=== PATIENT | female | born 1940 | race Caucasian/White ===

== ENCOUNTER 2017-09-05 12:47 | Inpatient (IN) | payer MEDICARE, OTHER ==
[2017-09-05] MEDS ORDERED: Albuterol/Ipratropium 3.0-0.5 MG/3 ML Neb Soln NEB ONE (13:17)
--- NOTE | 2017-09-05 13:17 | EDM.PDOC ---
ED HPI GENERAL MEDICAL PROBLEM - General Chief Complaint: Respiratory Problem Stated Complaint: [facility] Time Seen by Provider: 09/05/17 13:12 Source of Information: Reports: Patient History Limitations: Reports: No Limitations - History of Present Illness INITIAL COMMENTS - FREE TEXT/NARRATIVE: 76-year-old female brought to the ED per [facility] when she summoned them due to increasing shortness of breath. 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 She reports she did get a little sleep last night. This morning however her breathing has become much more difficult and O2 sats are registering in the 50 percentile. She came to the ED on a nonrebreather mask at 15 L/m. This was discontinued upon arrival and she is likely hypercapnic. She'll be placed on a Venturi mask at 50% at this time. Initial O2 sats were anywhere between 47 and 53%. I did question her whether or not she wished to be intubated and she would rather not. We will therefore try conservative measures with injury which is not likely to be successful with O2 sats this level and then I will progress to BiPAP. She denies any fever chills or extra cough. She always has some sputum to bring up which is usually take and perhaps slightly yellow at times. No recent hemoptysis. Onset: Today Onset Date: 09/05/17 (Has severe terminal end-stage COPD on 6 L of oxygen all times but sudden exacerbation of hypoxia and breathing difficulties this morning.) Duration: Hour(s): Location: Reports: Chest (Difficulty breathing.) Quality: Reports: Other Severity: Severe (Difficulty getting any air air.) Improves with: Reports: None Worsens with: Reports: Movement Context: Reports: Other (Has terminal COPD and is on 6 L of oxygen by nasal cannula at all times.). Denies: Activity, Exercise, Lifting, Sick Contact, Trauma Associated Symptoms: Reports: Cough (Chronic cough usually of thick white sputum.), Loss of Appetite, Malaise, Shortness of Breath (Chronically), Weakness (Walk today because of hypoxia.). 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 (see below) (None.) - Related Data Allergies Allergy/AdvReac Type Severity Reaction Status Date / Time lisinopril Allergy Hives Verified 06/01/16 12:08 Home Meds: Home Meds Letrozole [Letrozole] 2.5 mg PO DAILY 03/25/14 [History] Methimazole [Methimazole] 5 mg PO ASDIRECTED 03/25/14 [History] Metoprolol Tartrate [Lopressor] 50 mg PO BID 03/25/14 [History] Rosuvastatin Calcium [Crestor] 5 mg PO ASDIRECTED 03/25/14 [History] metFORMIN [Glucophage] 500 mg PO BID 03/25/14 [History] Aspirin 81 mg PO DAILY 06/27/14 [History] Calcium Carb & Citrate/Vit D3 [Calcium + D3 ER Tablet] 1 tab PO BID 06/27/14 [ History] Lutein/Minerals/Vit A,C & E [Ocuvite] 1 tab PO DAILY 06/27/14 [History] Ergocalciferol (Vitamin D2) [Vitamin D] 400 unit PO BID 06/01/16 [History] Furosemide [Lasix] 20 mg PO BIDDIURETIC 06/01/16 [History] Hyoscyamine [Hyomax-SL] 0.125 mg SL Q4H PRN 06/01/16 [History] Ibuprofen 400 mg PO QID PRN 06/01/16 [History] Albuterol/Ipratropium [Take Home: Albuterol/Ipratropium 4 GM Inhaler] 3 packet INH ASDIRECTED PRN #3 inhaler 06/04/16 [Rx] Fluticasone/Salmeterol [Advair Diskus 250-50] 1 puff INH BID #3 inhaler [Rx] methylPREDNISolone [Medrol] 4 mg PO ASDIRECTED #1 tab.ds.pk 06/04/16 [Rx] Past Medical History HEENT History: Reports: Cataract, Macular Degeneration Cardiovascular History: Reports: CAD, Heart Failure, SOB on Exertion Respiratory History: Reports: COPD, SOB, Other (See Below) Other Respiratory History: hypoxemia Gastrointestinal History: Reports: Irritable Bowel Syndrome Genitourinary History: Reports: UTI, Recurrent, Other (See Below) Other Genitourinary History: vaginitis 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 Musculoskeletal History: Reports: Arthritis, Back Pain, Chronic, Other (See Below) Other Musculoskeletal History: bulging disk in back Psychiatric History: Reports: Other (See Below) Other Psychiatric History: insomnia Endocrine/Metabolic History: Reports: Diabetes, Type II, Hypothyroidism, Other ( See Below) Other Endocrine/Metabolic History: thyrotoxicosis, multinodular goiter Hematologic History: Reports: Blood Transfusion(s) Oncologic (Cancer) History: Reports: Breast Dermatologic History: Reports: Other (See Below) Other Dermatologic History: rashes - Infectious Disease History Infectious Disease History: Reports: Chicken Pox, Measles, Mumps - Past Surgical History HEENT Surgical History: Reports: Cataract Surgery Female Surgical History: Reports: Breast Biopsy, Hysterectomy, Mastectomy Oncologic Surgical History: Reports: Biopsy of Breast, Mastectomy Social & Family History - Family History Family Medical History: Noncontributory Cardiac: Reports: Heart Failure Other Cardiac Family History: sister and brother Respiratory: Reports: PE, Other (See Below) Other Respiratory Family Hisory: father of thrombus Oncologic: Reports: Colon, Uterine - Tobacco Use Smoking Status *Q: Current Every Day Smoker Years of Tobacco use: 20 Packs/Tins Daily: 1 Used Tobacco, but Quit: No Second Hand Smoke Exposure: No - Caffeine Use Caffeine Use: Reports: None Other Caffeine Use: 2-3 cups of coffee per day - Alcohol Use Days Per Week of Alcohol Use: 0 - Recreational Drug Use Recreational Drug Use: No - Living Situation & Occupation Living situation: Reports: , Alone Occupation: Retired ED ROS GENERAL - Review of Systems Review Of Systems: See Below Constitutional: Reports: Malaise, Weakness, Fatigue, Decreased Appetite, Weight Loss. Denies: Fever, Chills HEENT: Reports: Glasses Respiratory: Reports: Shortness of Breath (Patient has end-stage COPD and is on oxygen at 6 L/m by nasal cannula at all times.), Wheezing, Cough, Sputum. Denies: Pleuritic Chest Pain, Hemoptysis (Thick white sputum) Cardiovascular: Reports: Blood Pressure Problem, Dyspnea on Exertion (Noticed more swelling in her lower extremities the last several days. Chronically.), Edema, Orthopnea. Denies: Chest Pain, Claudication (Often runs low.) Endocrine: Reports: Fatigue GI/Abdominal: Reports: Diarrhea (Stools tend always be on the looser side never problems with constipation.), Decreased Appetite. Denies: Difficulty Swallowing , Distension, Flatus, Hematochezia, Melena, Stool Incontinence : Reports: Frequency Musculoskeletal: Reports: Neck Pain (Knees hips or back neck and shoulders at times), Joint Pain Skin: Reports: No Symptoms Neurological: Reports: No Symptoms Psychiatric: Reports: No Symptoms Hematologic/Lymphatic: Reports: No Symptoms ED EXAM, GENERAL - Physical Exam Exam: See Below Exam Limited By: No Limitations General Appearance: Severe Distress (She is obviously severely hypoxic with central cyanosis. She is able to speak in 3 word sentences.), Other (She arrived on a nonrebreather mask at 15 L/m which was discontinued as she is likely hypercapnic and a CO2 retainer. She was placed on nasal cannula at 6 L/m but O2 sats were only 50%. Therefore this was changed to eventually mask at 50% . An ABG will be done to confirm her PCO2 and PO2.) Eye Exam: Bilateral Eye: Normal Inspection Throat/Mouth: Normal Inspection, Normal Oropharynx, Other Head: Atraumatic, Normocephalic (Tongue is moderately dry insurance.) Neck: Normal Inspection, Supple, Non-Tender, Full Range of Motion, Other (No jugular venous pulse distention). No: Carotid Bruit, Lymphadenopathy (L), Lymphadenopathy (R) Respiratory/Chest: Respiratory Distress (Tachypnea 26-30/m.), Decreased Breath Sounds (Occasional audible wheezing. Decreased breath sounds to the lower 40% of lung mon bilaterally.), Wheezing, Accessory Muscle Use. No: Lungs Clear, Normal Breath Sounds, Rales Cardiovascular: Regular Rate, Rhythm, No Murmur, No Rub. No: Normal Peripheral Pulses, JVD Peripheral Pulses: 0: Posterior Tibial (L), Posterior Tibial (R), Dorsalis Pedis (L), Dorsalis Pedis (R) GI/Abdominal: Normal Bowel Sounds, Soft, Non-Tender, No Organomegaly, Distended (Minimal distention in the abdomen upper abdomen with increased tympany compose some aerophagia.). No: Rigid, Rebound, Tender, Abnormal Bowel Sounds Rectal (Female) Exam: Normal Exam Back Exam: Normal Inspection, Full Range of Motion Extremities: Pedal Edema (2-3+ pitting edema in both lower extremities noted almost to her knees bilaterally.), Other (She is markedly slight cyanotic peripherally with clubbing of all fingers.) Neurological: Alert, Oriented, CN II-XII Intact, Normal Cognition Psychiatric: Normal Affect, Normal Mood Skin Exam: Warm, Dry, Cyanosis (Central cyanosis with marked bluish discoloration of her nose and fingers and feet.) EKG INTERPRETATION EKG Date: 09/05/17 Time: 13:05 Rhythm: NSR Rate (Beats/Min): 89 [place]: RAD-Right [place] Deviation (112.) P-Wave: Present QRS: Other (Decreased voltage in both limb and precordial leads i.e. COPD pattern. Q waves leads V1 and V2 suggestive of an old anteroseptal myocardial infarction. Q waves also noted in lead aVL which by itself is nonspecific.) ST-T: Other (T-wave inversion in leads 1 aVL lead to and V6. Not rule out lateral apical ischemia.) QT: Normal EKG Interpretation Comments: Abnormal ECG Course - Vital Signs Last Recorded V/S: Last Vital Signs Temp 36.2 C 09/05/17 12:49 Pulse 68 09/05/17 15:11 Resp 26 H 09/05/17 12:49 BP 87/70 L 09/05/17 12:49 Pulse Ox 79 L 09/05/17 13:18 - Orders/Labs/Meds Orders: Active Orders 24 hr Category Date Time Status Admission Status [Patient Status] [ADT] Routine ADT 09/05/17 14:50 Active EKG Documentation Completion [RC] ASDIRECTED Care 09/05/17 13:04 Active EKG Documentation Completion [RC] STAT Care 09/05/17 13:12 Inactive Oxygen Therapy [RC] ASDIRECTED Care 09/05/17 13:13 Active Peripheral IV Care [RC] . DIRECTED Care 09/05/17 13:20 Active RT Aerosol Therapy [RC] ASDIRECTED Care 09/05/17 13:18 Active RT BiPAP/CPAP [RC] ASDIRECTED Care 09/05/17 13:48 Active ABG [BLOOD GAS ARTERIAL] [BG] Stat Lab 09/05/17 13:47 Results CULTURE BLOOD [BC] Stat Lab 09/05/17 13:40 Received CULTURE BLOOD [BC] Stat Lab 09/05/17 13:55 Received URINALYSIS W/MICROSCOPIC [UA W/MICROSCOPIC] [URIN] Stat Lab 09/05/17 13:15 Uncollected Sodium Chloride 0.9% [Saline Flush] Med 09/05/17 13:19 Active 10 ml FLUSH ASDIRECTED PRN Blood Culture x2 Reflex Set [OM.PC] Stat Oth 09/05/17 13:15 Ordered Peripheral IV Insertion Adult [OM.PC] Stat Oth 09/05/17 13:19 Ordered EKG 12 Lead [EK] Stat Ther 09/05/17 13:03 Ordered Medication Orders Albuterol (Proventil Neb Soln) 2.5 mg NEB Q4HRRT PRN PRN Reason: Shortness of Breath Albuterol/Ipratropium (Duoneb 3.0-0.5 Mg/3 Ml) 3 ml NEB QID NINA Aspirin (Halfprin) 81 mg PO DAILY NINA Dextrose/Water (Dextrose 50% In Water) 50 ml IVPUSH ASDIRECTED PRN PRN Reason: Hypoglycemia Furosemide (Lasix) 40 mg IVPUSH NOW ONE Stop: 09/05/17 18:01 Hyoscyamine (Hyomax-Sl) 0.125 mg SL Q4H PRN PRN Reason: Cramping Insulin Aspart (Novolog) 0 unit SUBCUT QIDACANDBED NINA PRN Reason: Protocol Metformin HCl (Glucophage) 500 mg PO BID NINA Methimazole (Methimazole) 5 mg PO Q48H NINA Methylprednisolone Sodium Succinate (Solu-Medrol) 125 mg IVPUSH Q6H NINA Metoprolol Tartrate (Lopressor) 50 mg PO BID NINA Nicotine (Habitrol) 21 mg TRDERM DAILY [facility] Non-Formulary Medication (Fluticasone/Salmeterol) 1 puff NEB BID NINA Non-Formulary Medication (Letrozole) 2.5 mg PO DAILY NINA Rosuvastatin Calcium (Crestor) 5 mg PO Q48H NINA Sodium Chloride (Saline Flush) 10 ml FLUSH ASDIRECTED PRN PRN Reason: Keep Vein Open Last Admin: 09/05/17 13:27 Dose: 10 ml Labs: Laboratory Tests 09/05/17 09/05/17 09/05/17 Range/Units 13:40 13:40 13:40 WBC 10.06 H (3.98-10.04) K/mm3 RBC 4.84 (3.98-5.22) M/mm3 Hgb 13.5 (11.2-15.7) gm/L Hct 44.6 (34.1-44.9) % MCV 92.1 (79.4-94.8) fl MCH 27.9 (25.6-32.2) pg MCHC 30.3 L (32.2-35.5) g/dl RDW Std Deviation 64.4 H (36.4-46.3) fL Plt Count 244 (182-369) K/mm3 MPV 11.2 (9.4-12.3) fl Neutrophils % (Manual) 87 H (40-60) % Band Neutrophils % 0 (0-10) % Lymphocytes % (Manual) 10 L (20-40) % Atypical Lymphs % 0 % Monocytes % (Manual) 3 (2-10) % Eosinophils % (Manual) 0 L (0.7-5.8) % Basophils % (Manual) 0 L (0.1-1.2) Platelet Estimate Adequate Plt Morphology Comment Normal RBC Morph Comment Normal PT 12.7 (8.0-13.0) SECONDS INR 1.15 D-Dimer, Quantitative (0.19-0.59) mg/L Puncture Site ABG pH (7.35-7.45) ABG pCO2 (35.0-45.0) mmHg ABG pO2 (80.0-100.0) mmHg ABG HCO3 (22.0-26.0) meq/L ABG O2 Saturation (96.0-97.0) % ABG Base Excess (-2-2.0) Severiano Test A-a Gradient mmHg O2 Delivery Device FiO2 (21.00-100.00) % Sodium 140 (136-145) mEq/L Potassium 3.8 (3.5-5.1) mEq/L Chloride 98 (98-107) mEq/L Carbon Dioxide 32 (21-32) mEq/L Anion Gap 13.8 (5-15) BUN 27 H (7-18) mg/dL Creatinine 1.0 (0.55-1.02) mg/dL Est Cr Clr Drug Dosing 41.72 mL/min Estimated GFR (MDRD) 54 (>60) mL/min BUN/Creatinine Ratio 27.0 H (14-18) Glucose 158 H (83-115) mg/dL Calcium 9.1 (8.5-10.1) mg/dL Magnesium 1.9 (1.8-2.4) mg/dl Total Bilirubin 0.9 (0.2-1.0) mg/dL AST 50 H (15-37) U/L ALT 14 (14-59) U/L Alkaline Phosphatase 72 (46-116) U/L CK-MB (CK-2) 1.3 (0-3.6) ng/ml Troponin I < 0.017 (0.00-0.056) ng/mL C-Reactive Protein 0.8 (<1.0) mg/dL NT-Pro-B Natriuret Pep 8701 H (0-450) pg/mL Total Protein 7.6 (6.4-8.2) g/dl Albumin 3.3 L (3.4-5.0) g/dl Globulin 4.3 gm/dL Albumin/Globulin Ratio 0.8 L (1-2) 09/05/17 09/05/17 09/05/17 Range/Units 13:40 13:47 14:20 WBC (3.98-10.04) K/mm3 RBC (3.98-5.22) M/mm3 Hgb (11.2-15.7) gm/L Hct (34.1-44.9) % MCV (79.4-94.8) fl MCH (25.6-32.2) pg MCHC (32.2-35.5) g/dl RDW Std Deviation (36.4-46.3) fL Plt Count (182-369) K/mm3 MPV (9.4-12.3) fl Neutrophils % (Manual) (40-60) % Band Neutrophils % (0-10) % Lymphocytes % (Manual) (20-40) % Atypical Lymphs % % Monocytes % (Manual) (2-10) % Eosinophils % (Manual) (0.7-5.8) % Basophils % (Manual) (0.1-1.2) Platelet Estimate Plt Morphology Comment RBC Morph Comment PT (8.0-13.0) SECONDS INR D-Dimer, Quantitative 1.67 H (0.19-0.59) mg/L Puncture Site Lt radial Rt radial ABG pH 7.37 7.39 (7.35-7.45) ABG pCO2 57.3 H 56.4 H (35.0-45.0) mmHg ABG pO2 29.0 L* 39.0 L* (80.0-100.0) mmHg ABG HCO3 31.9 H 33.5 H (22.0-26.0) meq/L ABG O2 Saturation 32.8 L 71.0 L (96.0-97.0) % ABG Base Excess 5.4 H 7.2 H (-2-2.0) Severiano Test Positive Positive A-a Gradient 211 mmHg O2 Delivery Device Mask Bipap FiO2 0.00 L (21.00-100.00) % Sodium (136-145) mEq/L Potassium (3.5-5.1) mEq/L Chloride (98-107) mEq/L Carbon Dioxide (21-32) mEq/L Anion Gap (5-15) BUN (7-18) mg/dL Creatinine (0.55-1.02) mg/dL Est Cr Clr Drug Dosing mL/min Estimated GFR (MDRD) (>60) mL/min BUN/Creatinine Ratio (14-18) Glucose (83-115) mg/dL Calcium (8.5-10.1) mg/dL Magnesium (1.8-2.4) mg/dl Total Bilirubin (0.2-1.0) mg/dL AST (15-37) U/L ALT (14-59) U/L Alkaline Phosphatase (46-116) U/L CK-MB (CK-2) (0-3.6) ng/ml Troponin I (0.00-0.056) ng/mL C-Reactive Protein (<1.0) mg/dL NT-Pro-B Natriuret Pep (0-450) pg/mL Total Protein (6.4-8.2) g/dl Albumin (3.4-5.0) g/dl Globulin gm/dL Albumin/Globulin Ratio (1-2) Meds: Medications Generic Name Dose Route Start Last Admin Trade Name Freq PRN Reason Stop Dose Admin Albuterol 2.5 mg 09/05/17 16:40 Proventil Neb Soln NEB Q4HRRT PRN Shortness of Breath Albuterol/Ipratropium 3 ml 09/05/17 17:00 Duoneb 3.0-0.5 Mg/3 Ml NEB QID NINA Aspirin 81 mg 09/06/17 09:00 Halfprin PO DAILY NINA Dextrose/Water 50 ml 09/05/17 16:35 Dextrose 50% In Water IVPUSH ASDIRECTED PRN Hypoglycemia Furosemide 40 mg 09/05/17 18:00 Lasix IVPUSH 09/05/17 18:01 NOW ONE Hyoscyamine 0.125 mg 09/05/17 16:53 Hyomax-Sl SL Q4H PRN Cramping Insulin Aspart 0 unit 09/05/17 17:00 Novolog SUBCUT QIDACANDBED [facility] Protocol Metformin HCl 500 mg 09/05/17 21:00 Glucophage PO BID NINA Methimazole 5 mg 09/06/17 09:00 Methimazole PO Q48H NINA Methylprednisolone Sodium Succinate 125 mg 09/05/17 20:00 Solu-Medrol IVPUSH Q6H NINA Metoprolol Tartrate 50 mg 09/05/17 21:00 Lopressor PO BID NINA Nicotine 21 mg 09/06/17 09:00 Habitrol TRDERM DAILY NINA Non-Formulary Medication 1 puff 09/05/17 21:00 Fluticasone/Salmeterol NEB BID [facility] Non-Formulary Medication 2.5 mg 09/06/17 09:00 Letrozole PO DAILY [facility] Rosuvastatin Calcium 5 mg 09/06/17 21:00 Crestor PO Q48H NINA Sodium Chloride 10 ml 09/05/17 13:19 09/05/17 13:27 Saline Flush FLUSH 10 ml ASDIRECTED PRN Administration Keep Vein Open Discontinued Medications Generic Name Dose Route Start Last Admin Trade Name Freq PRN Reason Stop Dose Admin Albuterol/Ipratropium 3 ml 09/05/17 13:17 09/05/17 13:43 Duoneb 3.0-0.5 Mg/3 Ml NEB 09/05/17 13:18 3 ml ONETIME ONE Administration Furosemide 40 mg 09/05/17 13:52 09/05/17 14:07 Lasix IVPUSH 09/05/17 13:53 40 mg NOW ONE Administration Methylprednisolone Sodium Succinate 125 mg 09/05/17 13:20 09/05/17 13:27 Solu-Medrol IVPUSH 09/05/17 13:21 125 mg ONETIME ONE Administration - Radiology Interpretation Free Text/Narrative:: 68-year-old female presents the ED with acute exacerbation of her COPD. The reason for this is unclear. Possible mucous pplug. She does not appear to be febrile or exhibiting signs of an infection. She has an occasional scattered wheezes throughout the lung mon. Air entry to the posterior lung mon is decreased in the lower 40%. She is moderately to Make 28/m. When she arrived she was on a non-rebreather mask at 15 L/m. This was discontinued as she is likely hypercapnic. Placed back on 6 L/m by nasal cannula but sats remained around 47-53%. This will switch therefore to eventually mask at 50%. Will be obtained shortly. I suspect she will need BiPAP and/or possible intubation. I did speak with her in regards to intubation and she reluctantly stated she would allow this if necessary. She does have increased fluid in her lower extremities suggesting a possibility of congestive failure continued intercurrent illness. - Re-Assessments/Exams Free Text/Narrative Re-Assessment/Exam: 09/05/17 13:32 ABGs reveal a pH of 7.37. PCO2 is 57.2. PaO2 was 29. She will therefore be switched to BiPAP at 12/6 with an FiO2 of 50%. 09/05/17 13:33 chest x-ray done portably reveals a large right-sided pleural effusion and small left-sided pleural effusion. This is new in comparison to a chest x-ray that was available from May 2016. At that time she had bilateral blunted costovertebral angles compatible with mild pleural effusions. Therefore the large pleural effusion on the right side is contributing to her hypoxia. 09/05/17 13:50 ECG shows sinus rhythm at 89/m with a diffuse low voltage in the limb and precordial leads compose COPD pattern. There are Q waves in V1 and V2 suggesting an old anteroseptal myocardial infarction. There is Q-wave in aVL which is nonspecific by itself. However there are T-wave inversions one aVL V6 in lead 2 which could mean ischemia. On BiPAP her O2 sats continued to improve currently 83% and BP is improved to 94/43. Heart rate is 75. 09/05/17 14:09 O2 sats remained 83-86% on BiPAP. Blood pressure is 85/48. Heart rate is 72 and sinus. Repeat blood gases will be done at 1420 hrs. 09/05/17 14:28 O2 sats remained around 86%. BP is 98/57. Heart rate is 71 and sinus. Repeat ABGs have been done but the results are not yet available to me. 09/05/17 14:41 second ABG is back. It reveals a pH of 7.39. PCO2 remains elevated at 56.4 PO2 is 39. Sats are 71% on blood gas monitoring. Will increase her BiPAP to 14/8 and the FiO2 to 60%. 09/05/17 14:43 White count is 10.06 with 87% neutrophils and no bands reported. Hemoglobin is 13.5 with hematocrit of 44.6. Count is 244,000. PT is 12.7 with an INR 1.15. D-dimer is elevated at 1.67. Sodium is 140 with a potassium of 3.8. Chloride 98 bicarbonate is elevated at 32. Anion gap is normal at 13.8. BUN is mildly elevated at 27. Creatinine is 1.0. EGFR is 54. Glucose is 158. Calcium 9.1. Magnesium 1.9. Bilirubin is 0.9. AST is elevated at 50 ALT is 14. Alkaline phosphatase normal at 72. Cardiac markers show CK-MB fraction of 1.3 with a troponin I of less than 0.017. C-reactive protein is 0.8. BNP is elevated at 8701 which correlates with her chest x-ray. Total protein is 7.6. On further interrogation the patient reports that she was told she may have some spots on her lungs that may represent carcinoma which was not interested in pursuing any treatment in this regard. Therefore her right-sided pleural effusion may be related to carcinomatosis versus just congestive failure. Plan will be to have her admitted to the intensive care unit. I will discuss the case with Dr. Mcconnell production clerk hospitalist in this regard. . 09/05/17 14:49 did discuss case with production clerk hospitalist and patient will be admitted to the intensive care unit. Departure - Departure Time of Disposition: 15:30 Disposition: Admitted As Inpatient 64 Condition: Critical Clinical Impression: COPD exacerbation Congestive heart failure Qualifiers: Congestive heart failure type: unspecified congestive heart failure type Congestive heart failure chronicity: acute on chronic Qualified Code(s): I50.9 - Heart failure, unspecified - Discharge Information - My Orders Last 24 Hours: My Active Orders 09/05/17 13:03 EKG 12 Lead [EK] Stat 09/05/17 13:04 EKG Documentation Completion [RC] ASDIRECTED 09/05/17 13:12 EKG Documentation Completion [RC] STAT 09/05/17 13:13 Oxygen Therapy [RC] ASDIRECTED 09/05/17 13:15 URINALYSIS W/MICROSCOPIC [UA W/MICROSCOPIC] [URIN] Stat Blood Culture x2 Reflex Set [OM.PC] Stat 09/05/17 13:18 RT Aerosol Therapy [RC] ASDIRECTED 09/05/17 13:19 Sodium Chloride 0.9% [Saline Flush] 10 ml FLUSH ASDIRECTED PRN Peripheral IV Insertion Adult [OM.PC] Stat 09/05/17 13:20 Peripheral IV Care [RC] . DIRECTED 09/05/17 13:40 CULTURE BLOOD [BC] Stat 09/05/17 13:47 ABG [BLOOD GAS ARTERIAL] [BG] Stat 09/05/17 13:48 RT BiPAP/CPAP [RC] ASDIRECTED 09/05/17 13:55 CULTURE BLOOD [BC] Stat 09/05/17 14:50 Admission Status [Patient Status] [ADT] Routine - Assessment/Plan Last 24 Hours: My Active Orders 09/05/17 13:03 EKG 12 Lead [EK] Stat 09/05/17 13:04 EKG Documentation Completion [RC] ASDIRECTED 09/05/17 13:12 EKG Documentation Completion [RC] STAT 09/05/17 13:13 Oxygen Therapy [RC] ASDIRECTED 09/05/17 13:15 URINALYSIS W/MICROSCOPIC [UA W/MICROSCOPIC] [URIN] Stat Blood Culture x2 Reflex Set [OM.PC] Stat 09/05/17 13:18 RT Aerosol Therapy [RC] ASDIRECTED 09/05/17 13:19 Sodium Chloride 0.9% [Saline Flush] 10 ml FLUSH ASDIRECTED PRN Peripheral IV Insertion Adult [OM.PC] Stat 09/05/17 13:20 Peripheral IV Care [RC] . DIRECTED 09/05/17 13:40 CULTURE BLOOD [BC] Stat 09/05/17 13:47 ABG [BLOOD GAS ARTERIAL] [BG] Stat 09/05/17 13:48 RT BiPAP/CPAP [RC] ASDIRECTED 09/05/17 13:55 CULTURE BLOOD [BC] Stat 09/05/17 14:50 Admission Status [Patient Status] [ADT] Routine
[2017-09-05] MEDS ORDERED: Sodium Chloride 0.9% 10 ML Syringe FLUSH PRN (13:19)
[2017-09-05] MEDS ORDERED: methylPREDNISolone Sodium Succinate 125 MG/2 ML SDV IVPUSH ONE (13:20)
[2017-09-05] MEDS ORDERED: Furosemide 40 MG/4 ML VIAL IVPUSH ONE ×2 (13:52→18:00)
--- NOTE | 2017-09-05 14:51 | CR ---
Chest: Portable view of the chest was obtained. Comparison: Prior chest x-ray of 06/03/16. Heart size appears slightly prominent. Parenchymal density within the right lung base is seen most likely representing moderately large right sided pleural effusion. Difficult to exclude consolidation within the right lung. Central lung markings are increased felt to represent pulmonary vascular congestion. Bony structures are grossly intact. Impression: 1. Parenchymal density within the right lung base most likely representing moderately large right sided pleural effusion. Possible consolidation within the right lung base may be present. Please correlate if patient has any infectious symptoms. 2. Pulmonary vessels are felt to be slightly congested. 3. Other incidental findings. Diagnostic code #3
[2017-09-05] MEDS ORDERED: 50% Dextrose in Water 50 ML Syringe IVPUSH PRN (16:35)
[2017-09-05] MEDS ORDERED: Albuterol 0.083% 2.5 MG/3 ML Neb Soln NEB PRN (16:40)
--- NOTE | 2017-09-05 16:52 | PCM.HP ---
H&P History of Present Illness - General Date of Service: 09/05/17 Source of Information: Patient, Family, Provider History Limitations: Reports: No Limitations - History of Present Illness Initial Comments - Free Text/Narative: 76 year old female who lives at home has been experiencing progressive SOB, baseline O2 requirement has been 6 l/m. She was placed on a NRBM when picked up by EMS. She required BIPAP during the ED evaluation. The patient has end stage COPD and is an active smoker of 1 pack per day. She reports chest pain associated with the SOB with a productive cough. The color of the sputum has not changed.Her functional status has gradually declined, she requires more rest breaks to recovery from JACOBO. The patient has denied orthopnea, PND, syncopal/presyncopal episode. She sees her PCP, but does not schedule visits for a electronic specialist. She lives alone and has a brother and sister in law who check on her. Onset of Symptoms: Reports: Sudden Symptom Onset Date: 09/05/17 Duration of Symptoms: Reports: Hour(s):, Getting Worse Location: Reports: Chest Severity: Moderate Improves with: Reports: Medication Worsens with: Reports: None Associated Symptoms: Reports: Cough, Malaise, Shortness of Breath, Weakness - Related Data Allergies/Adverse Reactions: Allergies Allergy/AdvReac Type Severity Reaction Status Date / Time lisinopril Allergy Hives Verified 06/01/16 12:08 Home Medications: Home Meds Letrozole [Letrozole] 2.5 mg PO DAILY 03/25/14 [History] Methimazole [Methimazole] 5 mg PO ASDIRECTED 03/25/14 [History] Metoprolol Tartrate [Lopressor] 50 mg PO BID 03/25/14 [History] Rosuvastatin Calcium [Crestor] 5 mg PO ASDIRECTED 03/25/14 [History] metFORMIN [Glucophage] 500 mg PO BID 03/25/14 [History] Aspirin 81 mg PO DAILY 06/27/14 [History] Calcium Carb & Citrate/Vit D3 [Calcium + D3 ER Tablet] 1 tab PO BID 06/27/14 [ History] Lutein/Minerals/Vit A,C & E [Ocuvite] 1 tab PO DAILY 06/27/14 [History] Ergocalciferol (Vitamin D2) [Vitamin D] 400 unit PO BID 06/01/16 [History] Furosemide [Lasix] 20 mg PO BIDDIURETIC 06/01/16 [History] Hyoscyamine [Hyomax-SL] 0.125 mg SL Q4H PRN 06/01/16 [History] Ibuprofen 400 mg PO QID PRN 06/01/16 [History] Albuterol/Ipratropium [Take Home: Albuterol/Ipratropium 4 GM Inhaler] 3 packet INH ASDIRECTED PRN #3 inhaler 06/04/16 [Rx] Fluticasone/Salmeterol [Advair Diskus 250-50] 1 puff INH BID #3 inhaler [Rx] methylPREDNISolone [Medrol] 4 mg PO ASDIRECTED #1 tab.ds.pk 06/04/16 [Rx] Past Medical History HEENT History: Reports: Cataract, Macular Degeneration Cardiovascular History: Reports: CAD, Heart Failure, SOB on Exertion Respiratory History: Reports: COPD, SOB, Other (See Below) Other Respiratory History: hypoxemia Gastrointestinal History: Reports: Irritable Bowel Syndrome Genitourinary History: Reports: UTI, Recurrent, Other (See Below) Other Genitourinary History: vaginitis [employer] History: Reports: Ectopic Musculoskeletal History: Reports: Arthritis, Back Pain, Chronic, Other (See Below) Other Musculoskeletal History: bulging disk in back Psychiatric History: Reports: Other (See Below) Other Psychiatric History: insomnia Endocrine/Metabolic History: Reports: Diabetes, Type II, Hypothyroidism, Other ( See Below) Other Endocrine/Metabolic History: thyrotoxicosis, multinodular goiter Hematologic History: Reports: Blood Transfusion(s) Oncologic (Cancer) History: Reports: Breast Dermatologic History: Reports: Other (See Below) Other Dermatologic History: rashes - Infectious Disease History Infectious Disease History: Reports: Chicken Pox, Measles, Mumps - Past Surgical History HEENT Surgical History: Reports: Cataract Surgery Female Surgical History: Reports: Breast Biopsy, Hysterectomy, Mastectomy Oncologic Surgical History: Reports: Biopsy of Breast, Mastectomy Social & Family History - Family History Family Medical History: Noncontributory Cardiac: Reports: Heart Failure Other Cardiac Family History: sister and brother Respiratory: Reports: PE, Other (See Below) Other Respiratory Family Hisory: father of thrombus Oncologic: Reports: Colon, Uterine - Tobacco Use Smoking Status *Q: Current Every Day Smoker Years of Tobacco use: 20 Packs/Tins Daily: 1 Used Tobacco, but Quit: No Second Hand Smoke Exposure: No - Caffeine Use Caffeine Use: Reports: Coffee Other Caffeine Use: 2-3 cups of coffee per day Caffeine Use Comment: 2-3 cups a day. - Alcohol Use Days Per Week of Alcohol Use: 0 - Recreational Drug Use Recreational Drug Use: No - Living Situation & Occupation Living situation: Reports: , Alone Occupation: Retired H&P Review of Systems - Review of Systems: Review Of Systems: See Below General: Reports: Malaise, Weakness, Fatigue, Decreased Appetite HEENT: Reports: No Symptoms Pulmonary: Reports: Shortness of Breath, Cough, Sputum Cardiovascular: Reports: Dyspnea on Exertion Gastrointestinal: Reports: No Symptoms Genitourinary: Reports: No Symptoms Musculoskeletal: Reports: No Symptoms Skin: Reports: No Symptoms Psychiatric: Reports: No Symptoms Neurological: Reports: No Symptoms Hematologic/Lymphatic: Reports: No Symptoms Immunologic: Reports: No Symptoms Exam - Exam Exam: See Below - Vital Signs Vital Signs: Last Vital Signs Temp 36.2 C 09/05/17 12:49 Pulse 68 09/05/17 15:11 Resp 26 H 09/05/17 12:49 BP 87/70 L 09/05/17 12:49 Pulse Ox 79 L 09/05/17 13:18 Weight: 62.142 kg - Exam Quality Assessment: Supplemental Oxygen, DVT Prophylaxis General: Alert, Oriented, Cooperative, Mild Distress HEENT: Conjunctiva Clear, Nares Patent, Normal Nasal Septum, Pupils Equal, Pupils Reactive, PERRLA Neck: Supple, Trachea Midline Lungs: Decreased Breath Sounds, Wheezing Cardiovascular: Regular Rate, Tachycardia GI/Abdominal Exam: Normal Bowel Sounds, Soft, Non-Tender, No Organomegaly, No Distention (Female) Exam: Deferred Rectal (Female) Exam: Deferred Back Exam: Normal Inspection Extremities: Normal Inspection, Non-Tender, Pedal Edema (1+) Skin: Warm Neurological: Cranial Nerves Intact Neuro Extensive - Mental Status: Alert, Oriented x3, Normal Mood/Affect, Normal Cognition, Memory Intact Neuro Extensive - Motor, Sensory, Reflexes: CN II-XII Intact Psychiatric: Alert, Normal Affect, Normal Mood - Patient Data Result Diagrams: 09/07/17 05:53 09/07/17 00:53 *Q Meaningful Use (ADM) - VTE *Q VTE Criteria *Q: - Stroke *Q Stroke Criteria *Q: - AMI *Q AMI Criteria *Q: - Problem List (1) COPD exacerbation SNOMED Code(s): 677998996709649 ICD Code: J44.1 - CHRONIC OBSTRUCTIVE PULMONARY DISEASE W (ACUTE) EXACERBATION Status: Acute Current Visit: Yes (2) Congestive heart failure SNOMED Code(s): 05439036 ICD Code: I50.9 - HEART FAILURE, UNSPECIFIED Status: Acute Current Visit : Yes Qualifiers: Congestive heart failure type: unspecified congestive heart failure type Congestive heart failure chronicity: acute on chronic Qualified Code(s): I50.9 - Heart failure, unspecified (3) Community acquired pneumonia SNOMED Code(s): 644857917 ICD Code: J18.9 - PNEUMONIA, UNSPECIFIED ORGANISM Status: Acute Current Visit: No (4) Cigarette smoker two packs a day or less SNOMED Code(s): 21201879 ICD Code: F17.210 - NICOTINE DEPENDENCE, CIGARETTES, UNCOMPLICATED Status: Chronic Current Visit: No (5) History of breast cancer SNOMED Code(s): 728027418 ICD Code: Z85.3 - PERSONAL HISTORY OF MALIGNANT NEOPLASM OF BREAST Status: Chronic Current Visit: No (6) Hyperlipidemia SNOMED Code(s): 55833413 ICD Code: E78.5 - HYPERLIPIDEMIA, UNSPECIFIED Status: Chronic Current Visit: No (7) Hypertension SNOMED Code(s): 98650750 ICD Code: I10 - ESSENTIAL (PRIMARY) HYPERTENSION Status: Chronic Current Visit: No (8) Hyperthyroidism SNOMED Code(s): 56142242 ICD Code: E05.90 - THYROTOXICOSIS, UNSP WITHOUT THYROTOXIC CRISIS OR STORM Status: Chronic Current Visit: No Problem List Initiated/Reviewed/Updated: Yes Orders Last 24hrs: Active Orders 24 hr Category Date Time Status Accu Check [Blood Glucose Check, Bedside] [RC] Care 09/05/17 16:35 Ordered QIDACANDBED Blood Glucose Check, Bedside [RC] QIDACANDBED Care 09/05/17 16:35 Ordered RT Aerosol Therapy [RC] ASDIRECTED Care 09/05/17 16:40 Ordered [employer] Diet [DIET] Diet 09/05/17 Dinner Ordered CXR [Chest 2V] [CR] Routine Exams 09/07/17 13:00 Ordered Echo Comp wo Cont [US] Routine Exams 09/07/17 09:00 Ordered BASIC METABOLIC PANEL,BMP [CHEM] DAILY Lab 09/06/17 05:00 Ordered BASIC METABOLIC PANEL,BMP [CHEM] DAILY Lab 09/07/17 05:00 Ordered BASIC METABOLIC PANEL,BMP [CHEM] DAILY Lab 09/08/17 05:00 Ordered BASIC METABOLIC PANEL,BMP [CHEM] DAILY Lab 09/09/17 05:00 Ordered BASIC METABOLIC PANEL,BMP [CHEM] DAILY Lab 09/10/17 05:00 Ordered CBC WITH AUTO DIFF [HEME] DAILY Lab 09/06/17 05:00 Ordered CBC WITH AUTO DIFF [HEME] DAILY Lab 09/07/17 05:00 Ordered CBC WITH AUTO DIFF [HEME] DAILY Lab 09/08/17 05:00 Ordered CBC WITH AUTO DIFF [HEME] DAILY Lab 09/09/17 05:00 Ordered CBC WITH AUTO DIFF [HEME] DAILY Lab 09/10/17 05:00 Ordered CRP [C-REACTIVE PROTEIN] [CHEM] DAILY Lab 09/06/17 05:00 Ordered CRP [C-REACTIVE PROTEIN] [CHEM] DAILY Lab 09/07/17 05:00 Ordered CRP [C-REACTIVE PROTEIN] [CHEM] DAILY Lab 09/08/17 05:00 Ordered CRP [C-REACTIVE PROTEIN] [CHEM] DAILY Lab 09/09/17 05:00 Ordered CRP [C-REACTIVE PROTEIN] [CHEM] DAILY Lab 09/10/17 05:00 Ordered MAGNESIUM [CHEM] DAILY Lab 09/06/17 05:00 Ordered MAGNESIUM [CHEM] DAILY Lab 09/07/17 05:00 Ordered MAGNESIUM [CHEM] DAILY Lab 09/08/17 05:00 Ordered MAGNESIUM [CHEM] DAILY Lab 09/09/17 05:00 Ordered MAGNESIUM [CHEM] DAILY Lab 09/10/17 05:00 Ordered MYCOPLASMA PNEUMONIAE IGM AB [CHEM] Routine Lab 09/06/17 05:00 Ordered RESPIRATORY PANEL BY PCR [MREF] Routine Lab 09/05/17 16:42 Uncollected STREP PNEUMONIAE ANTIGEN [MREF] Routine Lab 09/05/17 16:42 Uncollected TROPONIN I [CHEM] Routine Lab 09/05/17 18:00 Ordered Albuterol [Proventil Neb Soln] Med 09/05/17 16:40 Ordered 2.5 mg NEB Q4HRRT PRN Albuterol/Ipratropium [DuoNeb 3.0-0.5 MG/3 ML] Med 09/05/17 17:00 Ordered 3 ml NEB QID Dextrose 50% in Water Med 09/05/17 16:35 Ordered 50 ml IVPUSH ASDIRECTED PRN Furosemide [Lasix] Med 09/05/17 18:00 Once 40 mg IVPUSH NOW ONE Insulin Aspart [NovoLOG] Med 09/05/17 17:00 Ordered See Protocol SUBCUT QIDACANDBED Nicotine [Habitrol] Med 09/06/17 09:00 Ordered 21 mg TRDERM DAILY methylPREDNISolone Sod Succ [Solu-MEDROL] Med 09/05/17 16:45 Ordered 125 mg IVPUSH Q6H Isolation [COMM] Routine Oth 09/05/17 16:42 Ordered Medication Orders Albuterol (Proventil Neb Soln) 2.5 mg NEB Q4HRRT PRN PRN Reason: Shortness of Breath Albuterol/Ipratropium (Duoneb 3.0-0.5 Mg/3 Ml) 3 ml NEB QID NINA Dextrose/Water (Dextrose 50% In Water) 50 ml IVPUSH ASDIRECTED PRN PRN Reason: Hypoglycemia Furosemide (Lasix) 40 mg IVPUSH NOW ONE Stop: 09/05/17 18:01 Insulin Aspart (Novolog) 0 unit SUBCUT QIDACANDBED NINA PRN Reason: Protocol Methylprednisolone Sodium Succinate (Solu-Medrol) 125 mg IVPUSH Q6H NINA Nicotine (Habitrol) 21 mg TRDERM DAILY NINA Sodium Chloride (Saline Flush) 10 ml FLUSH ASDIRECTED PRN PRN Reason: Keep Vein Open Last Admin: 09/05/17 13:27 Dose: 10 ml Assessment/Plan Comment:: Impression: COPD exacerbation; end stage requires O2 @ 6 l/m Active tobacco abuse currently 1 pack per day Hypoxia AMS Acute CHF exacerbation Chronic IBS Diabetes mellitus type 2 Hypothyroidism Thyrotoxicosis/Multinodular goiter on Methimazole Plan: Keep O2 sat >88% Steroids IV Nebs IV Diurese as tolerated Home meds Daily Labs DVT/GI prophylaxis SW consult for SNF re: rehab Pulmonary rehab PT/OT consults
[2017-09-05] MEDS ORDERED: Hyoscyamine 0.125 MG Tab.SL SL PRN (16:53)
[2017-09-05] MEDS: Albuterol/Ipratropium 3.0-0.5 MG/3 ML Neb Soln NEB SCH ×2 (17:16→21:09)
[2017-09-05] MEDS: Insulin Aspart 100 Units/ML 3 ML Pen SUBCUT SCH ×2 (17:58→21:33)
[2017-09-05] MEDS: Formoterol/Mometasone 200-5 MCG 8.8 GM Inhaler IH SCH (21:09)
[2017-09-05] MEDS: Metoprolol Tartrate 100 MG Tab PO SCH (21:22)
[2017-09-05] MEDS: metFORMIN 500 MG Tab PO SCH (21:22)
[2017-09-05] MEDS: methylPREDNISolone Sodium Succinate 125 MG/2 ML SDV IVPUSH SCH (21:22)
[2017-09-06] MEDS: methylPREDNISolone Sodium Succinate 125 MG/2 ML SDV IVPUSH SCH ×4 (02:43→21:17)
[2017-09-06] MEDS: Insulin Aspart 100 Units/ML 3 ML Pen SUBCUT SCH ×4 (06:38→21:30)
[2017-09-06] MEDS: metFORMIN 500 MG Tab PO SCH ×2 (08:11→21:17)
[2017-09-06] MEDS: Aspirin 81 MG Tab.EC PO SCH (08:11)
[2017-09-06] MEDS: Nicotine 21 MG/24 Hr Patch TRDERM SCH (08:17)
[2017-09-06] MEDS: Formoterol/Mometasone 200-5 MCG 8.8 GM Inhaler IH SCH ×2 (08:37→21:27)
[2017-09-06] MEDS: Albuterol/Ipratropium 3.0-0.5 MG/3 ML Neb Soln NEB SCH ×4 (08:38→21:27)
[2017-09-06] MEDS ORDERED: Methimazole 5 MG Tab PO SCH (09:00)
[2017-09-06] MEDS: Metoprolol Tartrate 100 MG Tab PO SCH ×2 (09:29→21:17)
[2017-09-06] MEDS: Methimazole 5 MG Tab PO SCH ×2 (10:12→10:19)
--- NOTE | 2017-09-06 19:07 | PCM.PN ---
- General Info Date of Service: 09/06/17 Subjective Update: Remains SOB, and destaturates rapidly after changing to a NC to eat. Functional Status: Reports: Pain Controlled, Ambulating - Review of Systems General: Reports: Weakness HEENT: Reports: No Symptoms Pulmonary: Reports: Shortness of Breath Cardiovascular: Reports: No Symptoms Gastrointestinal: Reports: No Symptoms Genitourinary: Reports: No Symptoms Musculoskeletal: Reports: No Symptoms Skin: Reports: No Symptoms Neurological: Reports: No Symptoms Psychiatric: Reports: No Symptoms - Patient Data Vitals - Most Recent: Last Vital Signs Temp 36.8 C 09/06/17 16:00 Pulse 73 09/06/17 16:00 Resp 20 09/06/17 16:00 BP 112/61 09/06/17 16:00 Pulse Ox 92 L 09/06/17 16:00 Weight - Most Recent: 61.87 kg I&O - Last 24 Hours: Intake & Output 09/06/17 09/06/17 09/06/17 06:59 14:59 22:59 Intake Total 600 540 Output Total 500 300 300 Balance -500 300 240 Lab Results Last 24 Hours: Laboratory Results - last 24 hr 09/05/17 09/05/17 09/06/17 Range/Units 21:31 23:01 05:40 WBC 4.27 (3.98-10.04) K/mm3 RBC 4.46 (3.98-5.22) M/mm3 Hgb 12.5 (11.2-15.7) gm/L Hct 41.2 (34.1-44.9) % MCV 92.4 (79.4-94.8) fl MCH 28.0 (25.6-32.2) pg MCHC 30.3 L (32.2-35.5) g/dl RDW Std Deviation 64.9 H (36.4-46.3) fL Plt Count 217 (182-369) K/mm3 MPV 11.1 (9.4-12.3) fl Neut % (Auto) 87.1 H (34.0-71.1) % Lymph % (Auto) 10.8 L (19.3-51.7) % Brown % (Auto) 1.9 L (4.7-12.5) % Eos % (Auto) 0 L (0.7-5.8) Baso % (Auto) 0.0 L (0.1-1.2) % Neut # (Auto) 3.72 (1.56-6.13) K/mm3 Lymph # (Auto) 0.46 L (1.18-3.74) K/mm3 Brown # (Auto) 0.08 L (0.24-0.36) K/mm3 Eos # (Auto) 0.00 L (0.04-0.36) K/mm3 Baso # (Auto) 0.00 L (0.01-0.08) K/mm3 Manual Slide Review Abnormal smear Sodium (136-145) mEq/L Potassium (3.5-5.1) mEq/L Chloride (98-107) mEq/L Carbon Dioxide (21-32) mEq/L Anion Gap (5-15) BUN (7-18) mg/dL Creatinine (0.55-1.02) mg/dL Est Cr Clr Drug Dosing mL/min Estimated GFR (MDRD) (>60) mL/min BUN/Creatinine Ratio (14-18) Glucose (83-115) mg/dL POC Glucose 131 H (83-110) mg/dL Calcium (8.5-10.1) mg/dL Magnesium (1.8-2.4) mg/dl Troponin I (0.00-0.056) ng/mL C-Reactive Protein (<1.0) mg/dL Triglycerides (<150) mg/dL Cholesterol (<200) mg/dL LDL Cholesterol Direct (<100) mg/dL HDL Cholesterol (40-59) mg/dL Urine Color Yellow (Yellow) Urine Appearance Slt cloudy H (Clear) Urine pH 6.0 (5.0-8.0) Ur Specific [place] 1.015 (1.005-1.030) Urine Protein Negative (Negative) Urine Glucose (UA) Negative (Negative) Urine Ketones Negative (Negative) Urine Occult Blood Trace-lysed H (Negative) Urine Nitrite Negative (Negative) Urine Bilirubin Negative (Negative) Urine Urobilinogen 0.2 (0.2-1.0) Ur Leukocyte Esterase Trace H (Negative) Urine RBC 0-5 (0-5) /hpf Urine WBC 0-5 (0-5) /hpf Ur Epithelial Cells 10-20 H (0-5) /hpf Urine Bacteria Moderate H (FEW) /hpf Hyaline Casts 10-20 H (0-5) /lpf Urine Mucus Not seen (FEW) /hpf Mycoplasma pneumon IgM (NEGATIVE) 09/06/17 09/06/17 09/06/17 Range/Units 05:40 11:56 17:30 WBC (3.98-10.04) K/mm3 RBC (3.98-5.22) M/mm3 Hgb (11.2-15.7) gm/L Hct (34.1-44.9) % MCV (79.4-94.8) fl MCH (25.6-32.2) pg MCHC (32.2-35.5) g/dl RDW Std Deviation (36.4-46.3) fL Plt Count (182-369) K/mm3 MPV (9.4-12.3) fl Neut % (Auto) (34.0-71.1) % Lymph % (Auto) (19.3-51.7) % Brown % (Auto) (4.7-12.5) % Eos % (Auto) (0.7-5.8) Baso % (Auto) (0.1-1.2) % Neut # (Auto) (1.56-6.13) K/mm3 Lymph # (Auto) (1.18-3.74) K/mm3 Brown # (Auto) (0.24-0.36) K/mm3 Eos # (Auto) (0.04-0.36) K/mm3 Baso # (Auto) (0.01-0.08) K/mm3 Manual Slide Review Sodium 141 (136-145) mEq/L Potassium 4.1 (3.5-5.1) mEq/L Chloride 97 L (98-107) mEq/L Carbon Dioxide 36 H (21-32) mEq/L Anion Gap 12.1 (5-15) BUN 30 H (7-18) mg/dL Creatinine 0.9 (0.55-1.02) mg/dL Est Cr Clr Drug Dosing 46.36 mL/min Estimated GFR (MDRD) > 60 (>60) mL/min BUN/Creatinine Ratio 33.3 H (14-18) Glucose 126 H (83-115) mg/dL POC Glucose 162 H 209 H (83-110) mg/dL Calcium 8.6 (8.5-10.1) mg/dL Magnesium 1.8 (1.8-2.4) mg/dl Troponin I < 0.017 (0.00-0.056) ng/mL C-Reactive Protein 0.4 (<1.0) mg/dL Triglycerides 79 (<150) mg/dL Cholesterol 104 (<200) mg/dL LDL Cholesterol Direct 53 (<100) mg/dL HDL Cholesterol 38.0 L (40-59) mg/dL Urine Color (Yellow) Urine Appearance (Clear) Urine pH (5.0-8.0) Ur Specific [place] (1.005-1.030) Urine Protein (Negative) Urine Glucose (UA) (Negative) Urine Ketones (Negative) Urine Occult Blood (Negative) Urine Nitrite (Negative) Urine Bilirubin (Negative) Urine Urobilinogen (0.2-1.0) Ur Leukocyte Esterase (Negative) Urine RBC (0-5) /hpf Urine WBC (0-5) /hpf Ur Epithelial Cells (0-5) /hpf Urine Bacteria (FEW) /hpf Hyaline Casts (0-5) /lpf Urine Mucus (FEW) /hpf Mycoplasma pneumon IgM Negative (NEGATIVE) Med Orders - Current: Current Medications Albuterol (Proventil Neb Soln) 2.5 mg NEB Q4HRRT PRN PRN Reason: Shortness of Breath Albuterol/Ipratropium (Duoneb 3.0-0.5 Mg/3 Ml) 3 ml NEB QID [facility] Last Admin: 09/06/17 17:20 Dose: 3 ml Aspirin (Halfprin) 81 mg PO DAILY [facility] Last Admin: 09/06/17 08:11 Dose: 81 mg Dextrose/Water (Dextrose 50% In Water) 50 ml IVPUSH ASDIRECTED PRN PRN Reason: Hypoglycemia Hyoscyamine (Hyomax-Sl) 0.125 mg SL Q4H PRN PRN Reason: Cramping Insulin Aspart (Novolog) 0 unit SUBCUT QIDACANDBED [facility] PRN Reason: Protocol Last Admin: 09/06/17 17:32 Dose: 2 unit Metformin HCl (Glucophage) 500 mg PO BID [facility] Last Admin: 09/06/17 08:11 Dose: 500 mg Methimazole (Methimazole) 5 mg PO Q48H [facility] Methylprednisolone Sodium Succinate (Solu-Medrol) 125 mg IVPUSH Q6H [facility] Last Admin: 09/06/17 15:04 Dose: 125 mg Metoprolol Tartrate (Lopressor) 50 mg PO BID [facility] Last Admin: 09/06/17 09:29 Dose: Not Given Mometasone Furoate/Formoterol Fumar (Dulera 200-5 Mcg) 2 puff IH BID [facility] Last Admin: 09/06/17 08:37 Dose: 2 puff Nicotine (Habitrol) 21 mg TRDERM DAILY [facility] Last Admin: 09/06/17 08:17 Dose: 21 mg Letrozole 2.5mg Tab 0 each PO DAILY [facility] Last Admin: 09/06/17 09:30 Dose: Not Given Rosuvastatin Calcium (Crestor) 5 mg PO Q48H [facility] Sodium Chloride (Saline Flush) 10 ml FLUSH ASDIRECTED PRN PRN Reason: Keep Vein Open Last Admin: 09/05/17 13:27 Dose: 10 ml Discontinued Medications Albuterol/Ipratropium (Duoneb 3.0-0.5 Mg/3 Ml) 3 ml NEB ONETIME ONE Stop: 09/05/17 13:18 Last Admin: 09/05/17 13:43 Dose: 3 ml Furosemide (Lasix) 40 mg IVPUSH NOW ONE Stop: 09/05/17 13:53 Last Admin: 09/05/17 14:07 Dose: 40 mg Furosemide (Lasix) 40 mg IVPUSH NOW ONE Stop: 09/05/17 18:01 Last Admin: 09/05/17 17:33 Dose: 40 mg Methimazole (Methimazole) 5 mg PO Q48H [facility] Last Admin: 09/06/17 10:27 Dose: Not Given Methimazole (Methimazole) 5 mg PO Q48H [facility] Last Admin: 09/06/17 10:19 Dose: Not Given Methylprednisolone Sodium Succinate (Solu-Medrol) 125 mg IVPUSH ONETIME ONE Stop: 09/05/17 13:21 Last Admin: 09/05/17 13:27 Dose: 125 mg - Exam Quality Assessment: Supplemental Oxygen, DVT Prophylaxis General: Alert, Oriented, Cooperative, No Acute Distress HEENT: Pupils Equal, Pupils Reactive, EOMI Neck: Supple, Trachea Midline Lungs: Normal Respiratory Effort Cardiovascular: Regular Rate, Regular Rhythm GI/Abdominal Exam: Normal Bowel Sounds, Soft, Non-Tender, No Organomegaly, No Distention (Female) Exam: Deferred Back Exam: Normal Inspection Extremities: Normal Inspection Skin: Warm Neurological: No New Focal Deficit Psy/Mental Status: Alert, Anxious - Problem List Review Problem List Initiated/Reviewed/Updated: Yes - My Orders Last 24 Hours: My Active Orders 09/06/17 09:00 Aspirin [Halfprin] 81 mg PO DAILY Nicotine [Habitrol] 21 mg TRDERM DAILY Patient's Own Medication [Ptom] 0 each PO DAILY 09/06/17 19:02 Code Status [Resuscitation Status] Routine 09/06/17 21:00 Rosuvastatin [Crestor] 5 mg PO Q48H 09/06/17 Lunch Full Liquid Diet [DIET] 09/07/17 05:00 BASIC METABOLIC PANEL,BMP [CHEM] DAILY CBC WITH AUTO DIFF [HEME] DAILY CRP [C-REACTIVE PROTEIN] [CHEM] DAILY MAGNESIUM [CHEM] DAILY 09/07/17 09:00 Consult to Pulmonary Rehabilitation [CONS] Routine Consult to Cardiac Rehab Nurse [CONS] Routine Echo Comp wo Cont [US] Routine Methimazole 5 mg PO Q48H 09/07/17 12:00 Consult to Occupational Therapy [OT Evaluation and Treatment] [CONS] Routine 09/07/17 13:00 Consult to Physical Therapy [PT Evaluation and Treatment] [CONS] Routine CXR [Chest 2V] [CR] Routine 09/08/17 05:00 BASIC METABOLIC PANEL,BMP [CHEM] DAILY CBC WITH AUTO DIFF [HEME] DAILY CRP [C-REACTIVE PROTEIN] [CHEM] DAILY MAGNESIUM [CHEM] DAILY 09/09/17 05:00 BASIC METABOLIC PANEL,BMP [CHEM] DAILY CBC WITH AUTO DIFF [HEME] DAILY CRP [C-REACTIVE PROTEIN] [CHEM] DAILY MAGNESIUM [CHEM] DAILY 09/10/17 05:00 BASIC METABOLIC PANEL,BMP [CHEM] DAILY CBC WITH AUTO DIFF [HEME] DAILY CRP [C-REACTIVE PROTEIN] [CHEM] DAILY MAGNESIUM [CHEM] DAILY 09/05/17 20:00 methylPREDNISolone Sod Succ [Solu-MEDROL] 125 mg IVPUSH Q6H 09/05/17 21:00 RESPIRATORY PANEL BY PCR [MREF] Routine Metoprolol Tartrate [Lopressor] 50 mg PO BID Mometasone/Formoterol [Dulera 200-5 MCG] 2 puff IH BID metFORMIN [Glucophage] 500 mg PO BID 09/05/17 23:01 STREP PNEUMONIAE ANTIGEN [MREF] Routine - Plan Plan:: Impression: COPD exacerbation; end stage requires O2 @ 6 l/m Active tobacco abuse currently 1 pack per day Hypoxia AMS Acute CHF exacerbation Chronic IBS Diabetes mellitus type 2 Hypothyroidism Thyrotoxicosis/Multinodular goiter on Methimazole Plan: Keep O2 sat >88% Steroids IV Nebs IV Diurese as tolerated Home meds Daily Labs DVT/GI prophylaxis SW consult for SNF re: rehab Pulmonary rehab PT/OT consults
[2017-09-06] MEDS: Rosuvastatin 10 MG Tab PO SCH (21:20)
[2017-09-07] MEDS: methylPREDNISolone Sodium Succinate 125 MG/2 ML SDV IVPUSH SCH ×3 (03:18→17:30)
[2017-09-07] MEDS: Aspirin 81 MG Tab.EC PO SCH (09:00)
[2017-09-07] MEDS: metFORMIN 500 MG Tab PO SCH ×2 (09:00→21:02)
--- NOTE | 2017-09-07 09:00 | CR ---
Chest: Two views of the chest were obtained. Comparison: Prior chest x-ray of 09/05/17. Heart size at the upper limits of normal. Moderately large right sided pleural effusion is seen. Small left-sided pleural effusion is noted. Probable consolidation within the right lung base again suggested. Pulmonary vessels are mildly increased. Bony structures are grossly intact. Impression: 1. Findings suspicious for slightly increasing right sided pleural effusion. 2. Other findings as described above appear fairly stable. Diagnostic code #3
[2017-09-07] MEDS: Nicotine 21 MG/24 Hr Patch TRDERM SCH (10:27)
[2017-09-07] MEDS: Metoprolol Tartrate 100 MG Tab PO SCH ×2 (10:28→21:01)
[2017-09-07] MEDS: Insulin Aspart 100 Units/ML 3 ML Pen SUBCUT SCH ×4 (10:30→21:02)
[2017-09-07] MEDS: Albuterol/Ipratropium 3.0-0.5 MG/3 ML Neb Soln NEB SCH ×3 (10:51→22:24)
[2017-09-07] MEDS: Formoterol/Mometasone 200-5 MCG 8.8 GM Inhaler IH SCH ×2 (10:51→22:25)
[2017-09-07] MEDS: Methimazole 5 MG Tab PO SCH (12:33)
--- NOTE | 2017-09-07 16:16 | PCM.PN ---
- General Info Date of Service: 09/07/17 Functional Status: Reports: Tolerating Diet - Review of Systems General: Reports: Weakness HEENT: Reports: No Symptoms Pulmonary: Reports: No Symptoms Cardiovascular: Reports: No Symptoms Gastrointestinal: Reports: No Symptoms Genitourinary: Reports: No Symptoms Musculoskeletal: Reports: No Symptoms Skin: Reports: No Symptoms Neurological: Reports: No Symptoms Psychiatric: Reports: No Symptoms - Patient Data Vitals - Most Recent: Last Vital Signs Temp 36.9 C 09/07/17 12:00 Pulse 77 09/07/17 10:28 Resp 18 09/07/17 12:00 BP 112/71 09/07/17 12:00 Pulse Ox 88 L 09/07/17 12:00 Weight - Most Recent: 61.87 kg I&O - Last 24 Hours: Intake & Output 09/07/17 09/07/17 09/07/17 06:59 14:59 22:59 Intake Total 400 940 Output Total 600 300 Balance -200 640 Lab Results Last 24 Hours: Laboratory Results - last 24 hr 09/06/17 09/06/17 09/07/17 Range/Units 17:30 21:25 00:53 WBC (3.98-10.04) K/mm3 RBC (3.98-5.22) M/mm3 Hgb (11.2-15.7) gm/L Hct (34.1-44.9) % MCV (79.4-94.8) fl MCH (25.6-32.2) pg MCHC (32.2-35.5) g/dl RDW Std Deviation (36.4-46.3) fL Plt Count (182-369) K/mm3 MPV (9.4-12.3) fl Neut % (Auto) (34.0-71.1) % Lymph % (Auto) (19.3-51.7) % [place] % (Auto) (4.7-12.5) % Eos % (Auto) (0.7-5.8) Baso % (Auto) (0.1-1.2) % Neut # (Auto) (1.56-6.13) K/mm3 Lymph # (Auto) (1.18-3.74) K/mm3 [place] # (Auto) (0.24-0.36) K/mm3 Eos # (Auto) (0.04-0.36) K/mm3 Baso # (Auto) (0.01-0.08) K/mm3 Manual Slide Review Sodium 140 (136-145) mEq/L Potassium 3.9 (3.5-5.1) mEq/L Chloride 100 (98-107) mEq/L Carbon Dioxide 34 H (21-32) mEq/L Anion Gap 9.9 (5-15) BUN 28 H (7-18) mg/dL Creatinine 0.8 (0.55-1.02) mg/dL Est Cr Clr Drug Dosing 52.15 mL/min Estimated GFR (MDRD) > 60 (>60) mL/min BUN/Creatinine Ratio 35.0 H (14-18) Glucose 147 H (83-115) mg/dL POC Glucose 209 H 188 H (83-110) mg/dL Calcium 8.7 (8.5-10.1) mg/dL Magnesium 1.9 (1.8-2.4) mg/dl C-Reactive Protein < 0.2 (<1.0) mg/dL 09/07/17 09/07/17 09/07/17 Range/Units 05:53 07:28 12:28 WBC 7.20 (3.98-10.04) K/mm3 RBC 4.14 (3.98-5.22) M/mm3 Hgb 11.3 (11.2-15.7) gm/L Hct 38.1 (34.1-44.9) % MCV 92.0 (79.4-94.8) fl MCH 27.3 (25.6-32.2) pg MCHC 29.7 L (32.2-35.5) g/dl RDW Std Deviation 62.7 H (36.4-46.3) fL Plt Count 207 (182-369) K/mm3 MPV 11.0 (9.4-12.3) fl Neut % (Auto) 92.6 H (34.0-71.1) % Lymph % (Auto) 3.5 L (19.3-51.7) % [place] % (Auto) 3.8 L (4.7-12.5) % Eos % (Auto) 0 L (0.7-5.8) Baso % (Auto) 0.0 L (0.1-1.2) % Neut # (Auto) 6.67 H (1.56-6.13) K/mm3 Lymph # (Auto) 0.25 L (1.18-3.74) K/mm3 [place] # (Auto) 0.27 (0.24-0.36) K/mm3 Eos # (Auto) 0.00 L (0.04-0.36) K/mm3 Baso # (Auto) 0.00 L (0.01-0.08) K/mm3 Manual Slide Review Abnormal smear Sodium (136-145) mEq/L Potassium (3.5-5.1) mEq/L Chloride (98-107) mEq/L Carbon Dioxide (21-32) mEq/L Anion Gap (5-15) BUN (7-18) mg/dL Creatinine (0.55-1.02) mg/dL Est Cr Clr Drug Dosing mL/min Estimated GFR (MDRD) (>60) mL/min BUN/Creatinine Ratio (14-18) Glucose (83-115) mg/dL POC Glucose 136 H 169 H (83-110) mg/dL Calcium (8.5-10.1) mg/dL Magnesium (1.8-2.4) mg/dl C-Reactive Protein (<1.0) mg/dL Med Orders - Current: Current Medications Albuterol (Proventil Neb Soln) 2.5 mg NEB Q4HRRT PRN PRN Reason: Shortness of Breath Albuterol/Ipratropium (Duoneb 3.0-0.5 Mg/3 Ml) 3 ml NEB QIDRT [facility] Last Admin: 09/07/17 16:04 Dose: 3 ml Aspirin (Halfprin) 81 mg PO DAILY [facility] Last Admin: 09/07/17 09:00 Dose: 81 mg Dextrose/Water (Dextrose 50% In Water) 50 ml IVPUSH ASDIRECTED PRN PRN Reason: Hypoglycemia Hyoscyamine (Hyomax-Sl) 0.125 mg SL Q4H PRN PRN Reason: Cramping Insulin Aspart (Novolog) 0 unit SUBCUT QIDACANDBED [facility] PRN Reason: Protocol Last Admin: 09/07/17 12:37 Dose: Not Given Metformin HCl (Glucophage) 500 mg PO BID [facility] Last Admin: 09/07/17 09:00 Dose: 500 mg Methimazole (Methimazole) 5 mg PO Q48H [facility] Last Admin: 09/07/17 12:33 Dose: 5 mg Methylprednisolone Sodium Succinate (Solu-Medrol) 125 mg IVPUSH Q8H [facility] Metoprolol Tartrate (Lopressor) 50 mg PO BID [facility] Last Admin: 09/07/17 10:28 Dose: 50 mg Mometasone Furoate/Formoterol Fumar (Dulera 200-5 Mcg) 2 puff IH BID [facility] Last Admin: 09/07/17 10:51 Dose: 2 puff Nicotine (Habitrol) 21 mg TRDERM DAILY [facility] Last Admin: 09/07/17 10:27 Dose: 21 mg Letrozole 2.5mg Tab 0 each PO DAILY [facility] Last Admin: 09/07/17 10:27 Dose: Not Given Rosuvastatin Calcium (Crestor) 5 mg PO Q48H [facility] Last Admin: 09/06/17 21:20 Dose: 5 mg Sodium Chloride (Saline Flush) 10 ml FLUSH ASDIRECTED PRN PRN Reason: Keep Vein Open Last Admin: 09/05/17 13:27 Dose: 10 ml Discontinued Medications Albuterol/Ipratropium (Duoneb 3.0-0.5 Mg/3 Ml) 3 ml NEB ONETIME ONE Stop: 09/05/17 13:18 Last Admin: 09/05/17 13:43 Dose: 3 ml Albuterol/Ipratropium (Duoneb 3.0-0.5 Mg/3 Ml) 3 ml NEB QID [facility] Last Admin: 09/06/17 21:27 Dose: 3 ml Furosemide (Lasix) 40 mg IVPUSH NOW ONE Stop: 09/05/17 13:53 Last Admin: 09/05/17 14:07 Dose: 40 mg Furosemide (Lasix) 40 mg IVPUSH NOW ONE Stop: 09/05/17 18:01 Last Admin: 09/05/17 17:33 Dose: 40 mg Methimazole (Methimazole) 5 mg PO Q48H [facility] Last Admin: 09/06/17 10:27 Dose: Not Given Methimazole (Methimazole) 5 mg PO Q48H [facility] Last Admin: 09/06/17 10:19 Dose: Not Given Methylprednisolone Sodium Succinate (Solu-Medrol) 125 mg IVPUSH ONETIME ONE Stop: 09/05/17 13:21 Last Admin: 09/05/17 13:27 Dose: 125 mg Methylprednisolone Sodium Succinate (Solu-Medrol) 125 mg IVPUSH Q6H [facility] Last Admin: 09/07/17 10:26 Dose: 125 mg - Exam Quality Assessment: Supplemental Oxygen, DVT Prophylaxis General: Alert, Oriented, Cooperative HEENT: Pupils Equal, Pupils Reactive, EOMI Neck: Supple, Trachea Midline Lungs: Normal Respiratory Effort, Decreased Breath Sounds Cardiovascular: Regular Rate, Regular Rhythm GI/Abdominal Exam: Normal Bowel Sounds, Soft, Non-Tender, No Organomegaly, No Distention (Female) Exam: Deferred Back Exam: Normal Inspection Extremities: Normal Inspection Skin: Warm Neurological: No New Focal Deficit Psy/Mental Status: Alert, Normal Affect, Normal Mood - Problem List Review Problem List Initiated/Reviewed/Updated: Yes - My Orders Last 24 Hours: My Active Orders 09/06/17 19:02 Code Status [Resuscitation Status] Routine 09/06/17 21:00 Rosuvastatin [Crestor] 5 mg PO Q48H 09/07/17 09:00 Consult to Pulmonary Rehabilitation [CONS] Routine Consult to [facility] [CONS] Routine Methimazole 5 mg PO Q48H 09/07/17 10:00 Albuterol/Ipratropium [DuoNeb 3.0-0.5 MG/3 ML] 3 ml NEB QIDRT 09/07/17 12:00 Consult to Occupational Therapy [OT Evaluation and Treatment] [CONS] Routine 09/07/17 13:00 Consult to Physical Therapy [PT Evaluation and Treatment] [CONS] Routine 09/07/17 18:00 methylPREDNISolone Sod Succ [Solu-MEDROL] 125 mg IVPUSH Q8H 09/08/17 05:00 BASIC METABOLIC PANEL,BMP [CHEM] DAILY CBC WITH AUTO DIFF [HEME] DAILY CRP [C-REACTIVE PROTEIN] [CHEM] DAILY MAGNESIUM [CHEM] DAILY 09/09/17 05:00 BASIC METABOLIC PANEL,BMP [CHEM] DAILY CBC WITH AUTO DIFF [HEME] DAILY CRP [C-REACTIVE PROTEIN] [CHEM] DAILY MAGNESIUM [CHEM] DAILY 09/10/17 05:00 BASIC METABOLIC PANEL,BMP [CHEM] DAILY CBC WITH AUTO DIFF [HEME] DAILY CRP [C-REACTIVE PROTEIN] [CHEM] DAILY MAGNESIUM [CHEM] DAILY - Plan Plan:: Impression: COPD exacerbation; end stage requires O2 @ 6 l/m Active tobacco abuse currently 1 pack per day Hypoxia--->improving; changed NRBM to , currently tolerating with O2 sat >88%. 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 Keep O2 sat >88% Steroids IV Nebs IV Diurese as tolerated Home meds Daily Labs DVT/GI prophylaxis SW consult for SNF re: rehab Pulmonary rehab PT/OT consults
[2017-09-07] MEDS ORDERED: Magnesium Sulfate/Water 2 GM in Premix Bag 1 BAG IV ONE (16:22)
[2017-09-08] MEDS: methylPREDNISolone Sodium Succinate 125 MG/2 ML SDV IVPUSH SCH ×3 (01:47→18:05)
[2017-09-08] MEDS: Albuterol/Ipratropium 3.0-0.5 MG/3 ML Neb Soln NEB SCH ×4 (06:08→22:29)
[2017-09-08] MEDS: Metoprolol Tartrate 100 MG Tab PO SCH ×2 (08:55→21:33)
[2017-09-08] MEDS: Aspirin 81 MG Tab.EC PO SCH (08:55)
[2017-09-08] MEDS: metFORMIN 500 MG Tab PO SCH ×2 (08:56→21:35)
[2017-09-08] MEDS: Enoxaparin 40 MG/0.4 ML Syringe SUBCUT SCH (08:57)
[2017-09-08] MEDS: Insulin Aspart 100 Units/ML 3 ML Pen SUBCUT SCH ×4 (08:58→21:37)
[2017-09-08] MEDS: Nicotine 21 MG/24 Hr Patch TRDERM SCH (08:59)
[2017-09-08] MEDS: Formoterol/Mometasone 200-5 MCG 8.8 GM Inhaler IH SCH ×2 (09:55→22:29)
--- NOTE | 2017-09-08 18:55 | PCM.PN ---
- General Info Date of Service: 09/08/17 Admission Dx/Problem (Free Text): Hypoxia Subjective Update: In to see Roni. She is resting comfortably in bed. She reports she feels like she is at baseline SOB when resting, however with movement she becomes quite short of breath. Saturationswhen I walk in the room are 89-90. We talked for quite some time and her oxygen saturations dropped to 78%. I asked if she felt short of breath after talking and she did not. She is on 12L o2 via NC. She states her baseline O2 is 6L. She states she has some difficulty at home as her NC is 25ft. long and she must push the concentrator around her house. I explained that she should discuss this with [employer] as they may have a solution. She reports she still feels weak but that is all. Continue to titrate O2. I explained to her that we may need to increase her home baseline O2 depending on her response. She believes her O2 will only go up to 7L but we can address that later if needed. Anticipated discharge in 24-48 hrs. Functional Status: Reports: Pain Controlled, Tolerating Diet, Ambulating, Urinating. Denies: New Symptoms - Review of Systems General: Reports: Weakness. Denies: Fever, Fatigue, Malaise, Chills HEENT: Reports: No Symptoms Pulmonary: Reports: No Symptoms Cardiovascular: Reports: No Symptoms Gastrointestinal: Reports: No Symptoms Genitourinary: Reports: No Symptoms Musculoskeletal: Reports: No Symptoms Skin: Reports: No Symptoms Neurological: Reports: No Symptoms Psychiatric: Reports: No Symptoms - Patient Data Vitals - Most Recent: Last Vital Signs Temp 97.9 F 09/08/17 16:05 Pulse 78 09/08/17 16:05 Resp 19 09/08/17 16:05 BP 102/53 L 09/08/17 16:05 Pulse Ox 90 L 09/08/17 17:17 Weight - Most Recent: 139 lb 8 oz I&O - Last 24 Hours: Intake & Output 09/08/17 09/08/17 09/08/17 06:59 14:59 22:59 Intake Total 944 983 5685 Balance 480 277 7101 Lab Results Last 24 Hours: Laboratory Results - last 24 hr 09/07/17 09/08/17 09/08/17 Range/Units 21:00 07:05 07:08 WBC 8.83 (3.98-10.04) K/mm3 RBC 4.17 (3.98-5.22) M/mm3 Hgb 11.8 (11.2-15.7) gm/L Hct 38.3 (34.1-44.9) % MCV 91.8 (79.4-94.8) fl MCH 28.3 (25.6-32.2) pg MCHC 30.8 L (32.2-35.5) g/dl RDW Std Deviation 63.9 H (36.4-46.3) fL Plt Count 209 (182-369) K/mm3 MPV 10.7 (9.4-12.3) fl Neut % (Auto) 95.5 H (34.0-71.1) % Lymph % (Auto) 2.0 L (19.3-51.7) % [place] % (Auto) 2.4 L (4.7-12.5) % Eos % (Auto) 0 L (0.7-5.8) Baso % (Auto) 0.0 L (0.1-1.2) % Neut # (Auto) 8.43 H (1.56-6.13) K/mm3 Lymph # (Auto) 0.18 L (1.18-3.74) K/mm3 [place] # (Auto) 0.21 L (0.24-0.36) K/mm3 Eos # (Auto) 0.00 L (0.04-0.36) K/mm3 Baso # (Auto) 0.00 L (0.01-0.08) K/mm3 Manual Slide Review Abnormal smear Sodium (136-145) mEq/L Potassium (3.5-5.1) mEq/L Chloride (98-107) mEq/L Carbon Dioxide (21-32) mEq/L Anion Gap (5-15) BUN (7-18) mg/dL Creatinine (0.55-1.02) mg/dL Est Cr Clr Drug Dosing mL/min Estimated GFR (MDRD) (>60) mL/min BUN/Creatinine Ratio (14-18) Glucose (83-115) mg/dL POC Glucose 189 H 126 H (83-110) mg/dL Calcium (8.5-10.1) mg/dL Magnesium (1.8-2.4) mg/dl C-Reactive Protein (<1.0) mg/dL 09/08/17 09/08/17 09/08/17 Range/Units 07:08 12:21 16:40 WBC (3.98-10.04) K/mm3 RBC (3.98-5.22) M/mm3 Hgb (11.2-15.7) gm/L Hct (34.1-44.9) % MCV (79.4-94.8) fl MCH (25.6-32.2) pg MCHC (32.2-35.5) g/dl RDW Std Deviation (36.4-46.3) fL Plt Count (182-369) K/mm3 MPV (9.4-12.3) fl Neut % (Auto) (34.0-71.1) % Lymph % (Auto) (19.3-51.7) % [place] % (Auto) (4.7-12.5) % Eos % (Auto) (0.7-5.8) Baso % (Auto) (0.1-1.2) % Neut # (Auto) (1.56-6.13) K/mm3 Lymph # (Auto) (1.18-3.74) K/mm3 [place] # (Auto) (0.24-0.36) K/mm3 Eos # (Auto) (0.04-0.36) K/mm3 Baso # (Auto) (0.01-0.08) K/mm3 Manual Slide Review Sodium 140 (136-145) mEq/L Potassium 3.8 (3.5-5.1) mEq/L Chloride 100 (98-107) mEq/L Carbon Dioxide 34 H (21-32) mEq/L Anion Gap 9.8 (5-15) BUN 25 H (7-18) mg/dL Creatinine 0.7 (0.55-1.02) mg/dL Est Cr Clr Drug Dosing 59.60 mL/min Estimated GFR (MDRD) > 60 (>60) mL/min BUN/Creatinine Ratio 35.7 H (14-18) Glucose 142 H (83-115) mg/dL POC Glucose 143 H 163 H (83-110) mg/dL Calcium 8.9 (8.5-10.1) mg/dL Magnesium 2.3 (1.8-2.4) mg/dl C-Reactive Protein < 0.2 (<1.0) mg/dL Kevin Results Last 24 Hours: Microbiology 09/05/17 21:00 Respiratory Virus Panel (PCR) ([facility]) - Final Nasopharyngeal Swab - Nare, Left 09/05/17 23:01 Streptococcus pneumoniae Antigen (M - Final Urine Med Orders - Current: Current Medications Albuterol (Proventil Neb Soln) 2.5 mg NEB Q4HRRT PRN PRN Reason: Shortness of Breath Albuterol/Ipratropium (Duoneb 3.0-0.5 Mg/3 Ml) 3 ml NEB QIDRT [facility] Last Admin: 09/08/17 15:39 Dose: 3 ml Aspirin (Halfprin) 81 mg PO DAILY [facility] Last Admin: 09/08/17 08:55 Dose: 81 mg Dextrose/Water (Dextrose 50% In Water) 50 ml IVPUSH ASDIRECTED PRN PRN Reason: Hypoglycemia Enoxaparin Sodium (Lovenox) 40 mg SUBCUT DAILY [facility] Last Admin: 09/08/17 08:57 Dose: 40 mg Hyoscyamine (Hyomax-Sl) 0.125 mg SL Q4H PRN PRN Reason: Cramping Insulin Aspart (Novolog) 0 unit SUBCUT QIDACANDBED [facility] PRN Reason: Protocol Last Admin: 09/08/17 16:58 Dose: 1 unit Metformin HCl (Glucophage) 500 mg PO BID [facility] Last Admin: 09/08/17 08:56 Dose: 500 mg Methimazole (Methimazole) 5 mg PO Q48H [facility] Last Admin: 09/07/17 12:33 Dose: 5 mg Methylprednisolone Sodium Succinate (Solu-Medrol) 125 mg IVPUSH Q8H [facility] Last Admin: 09/08/17 18:05 Dose: 125 mg Metoprolol Tartrate (Lopressor) 50 mg PO BID [facility] Last Admin: 09/08/17 08:55 Dose: 50 mg Mometasone Furoate/Formoterol Fumar (Dulera 200-5 Mcg) 2 puff IH BID [facility] Last Admin: 09/08/17 09:55 Dose: 2 puff Nicotine (Habitrol) 21 mg TRDERM DAILY [facility] Last Admin: 09/08/17 08:59 Dose: 21 mg Letrozole 2.5mg Tab 0 each PO DAILY [facility] Last Admin: 09/08/17 12:21 Dose: Not Given Rosuvastatin Calcium (Crestor) 5 mg PO Q48H [facility] Last Admin: 09/06/17 21:20 Dose: 5 mg Sodium Chloride (Saline Flush) 10 ml FLUSH ASDIRECTED PRN PRN Reason: Keep Vein Open Last Admin: 09/05/17 13:27 Dose: 10 ml Discontinued Medications Albuterol/Ipratropium (Duoneb 3.0-0.5 Mg/3 Ml) 3 ml NEB ONETIME ONE Stop: 09/05/17 13:18 Last Admin: 09/05/17 13:43 Dose: 3 ml Albuterol/Ipratropium (Duoneb 3.0-0.5 Mg/3 Ml) 3 ml NEB QID [facility] Last Admin: 09/06/17 21:27 Dose: 3 ml Furosemide (Lasix) 40 mg IVPUSH NOW ONE Stop: 09/05/17 13:53 Last Admin: 09/05/17 14:07 Dose: 40 mg Furosemide (Lasix) 40 mg IVPUSH NOW ONE Stop: 09/05/17 18:01 Last Admin: 09/05/17 17:33 Dose: 40 mg Magnesium Sulfate 2 gm/ Premix 50 mls @ 25 mls/hr IV ONETIME ONE Stop: 09/07/17 18:21 Last Admin: 09/07/17 17:34 Dose: 25 mls/hr Methimazole (Methimazole) 5 mg PO Q48H [facility] Last Admin: 09/06/17 10:27 Dose: Not Given Methimazole (Methimazole) 5 mg PO Q48H [facility] Last Admin: 09/06/17 10:19 Dose: Not Given Methylprednisolone Sodium Succinate (Solu-Medrol) 125 mg IVPUSH ONETIME ONE Stop: 09/05/17 13:21 Last Admin: 09/05/17 13:27 Dose: 125 mg Methylprednisolone Sodium Succinate (Solu-Medrol) 125 mg IVPUSH Q6H [facility] Last Admin: 09/07/17 10:26 Dose: 125 mg - Exam Quality Assessment: Supplemental Oxygen, DVT Prophylaxis General: Alert, Oriented, Cooperative, No Acute Distress HEENT: Pupils Equal, Pupils Reactive, EOMI, Mucous Membr. Moist/[place] Neck: Supple, Trachea Midline, No JVD, No Thyromegaly Lungs: Normal Respiratory Effort, Decreased Breath Sounds Cardiovascular: Regular Rate, Regular Rhythm GI/Abdominal Exam: Normal Bowel Sounds, Soft, Non-Tender, No Organomegaly, No Distention, No Abnormal Bruit, No Mass, Pelvis Stable (Female) Exam: Deferred Back Exam: Normal Inspection, Full Range of Motion Extremities: Normal Inspection, Normal Range of Motion, Non-Tender, No Pedal Edema, Normal Capillary Refill Peripheral Pulses: 2+: Radial (L), Radial (R), Posterior Tibial (L), Posterior Tibial (R), Dorsalis Pedis (L), Dorsalis Pedis (R) Skin: Warm, Dry, Intact Neurological: No New Focal Deficit Psy/Mental Status: Alert, Normal Affect, Normal Mood - Problem List & Annotations (1) COPD exacerbation SNOMED Code(s): 332742539508550 Code(s): J44.1 - CHRONIC OBSTRUCTIVE PULMONARY DISEASE W (ACUTE) EXACERBATION Status: Acute Current Visit: Yes (2) Congestive heart failure SNOMED Code(s): 64557181 Code(s): I50.9 - HEART FAILURE, UNSPECIFIED Status: Acute Priority: High Current Visit: Yes Qualifiers: Congestive heart failure type: unspecified congestive heart failure type Congestive heart failure chronicity: acute on chronic Qualified Code(s): I50.9 - Heart failure, unspecified (3) Cigarette smoker two packs a day or less SNOMED Code(s): 00096116 Code(s): F17.210 - NICOTINE DEPENDENCE, CIGARETTES, UNCOMPLICATED Status: Chronic Priority: Medium Current Visit: No (4) History of breast cancer SNOMED Code(s): 528988329 Code(s): Z85.3 - PERSONAL HISTORY OF MALIGNANT NEOPLASM OF BREAST Status: Chronic Priority: Low Current Visit: No (5) Hyperlipidemia SNOMED Code(s): 51994747 Code(s): E78.5 - HYPERLIPIDEMIA, UNSPECIFIED Status: Chronic Priority: Low Current Visit: No Qualifiers: Hyperlipidemia type: unspecified Qualified Code(s): E78.5 - Hyperlipidemia , unspecified (6) Hypertension SNOMED Code(s): 56671328 Code(s): I10 - ESSENTIAL (PRIMARY) HYPERTENSION Status: Chronic Priority : Low Current Visit: No Qualifiers: Hypertension type: essential hypertension Qualified Code(s): I10 - Essential (primary) hypertension (7) Hyperthyroidism SNOMED Code(s): 91680014 Code(s): E05.90 - THYROTOXICOSIS, UNSP WITHOUT THYROTOXIC CRISIS OR STORM Status: Chronic Priority: Low Current Visit: No - Problem List Review Problem List Initiated/Reviewed/Updated: Yes - Plan Plan:: Impression: COPD exacerbation; end stage requires O2 @ 6 l/m Active tobacco abuse currently 1 pack per day Hypoxia--->improving; changed NRBM -->VM-->NC, currently tolerating with O2 sat >88%. 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 Keep O2 sat >88% Steroids IV Nebs IV Diurese as tolerated Home meds Daily Labs DVT/GI prophylaxis SW consult for SNF re: rehab Pulmonary rehab PT/OT consults LOS>96 hr due to slow response to treatment, difficulty weaning O2 to baseline. Anticipated discharge in 24-48 hrs.
[2017-09-08] MEDS: Rosuvastatin 10 MG Tab PO SCH (21:32)
[2017-09-09] MEDS: methylPREDNISolone Sodium Succinate 125 MG/2 ML SDV IVPUSH SCH ×3 (02:49→17:43)
[2017-09-09] MEDS: Albuterol/Ipratropium 3.0-0.5 MG/3 ML Neb Soln NEB SCH ×4 (05:34→22:06)
[2017-09-09] MEDS: Insulin Aspart 100 Units/ML 3 ML Pen SUBCUT SCH ×4 (06:40→23:45)
[2017-09-09] MEDS: Aspirin 81 MG Tab.EC PO SCH (08:17)
[2017-09-09] MEDS: metFORMIN 500 MG Tab PO SCH ×2 (08:17→20:49)
[2017-09-09] MEDS: Nicotine 21 MG/24 Hr Patch TRDERM SCH (08:20)
[2017-09-09] MEDS: Enoxaparin 40 MG/0.4 ML Syringe SUBCUT SCH (08:20)
[2017-09-09] MEDS: Metoprolol Tartrate 100 MG Tab PO SCH ×2 (08:24→20:48)
[2017-09-09] MEDS: Formoterol/Mometasone 200-5 MCG 8.8 GM Inhaler IH SCH ×2 (09:03→22:06)
[2017-09-09] MEDS: Methimazole 5 MG Tab PO SCH (10:40)
--- NOTE | 2017-09-09 16:06 | CR ---
Chest: 2 views of the chest were obtained. Comparison: Previous chest x-ray of 09/07/17. Right-sided pleural effusion is seen. Small left-sided pleural effusion is noted. Presumed consolidation or atelectasis remains within the right lung base. Lung markings are increased which appear stable. Heart size and mediastinum are within normal limits and stable. Surgical clips are seen overlying the right chest wall. Impression: 1. Findings as noted above. No significant change is seen from previous exam. Diagnostic code #3
--- NOTE | 2017-09-09 18:43 | PCM.PN ---
- General Info Date of Service: 09/09/17 Functional Status: Reports: Pain Controlled, Tolerating Diet, Ambulating - Review of Systems General: Reports: Weakness HEENT: Reports: No Symptoms Pulmonary: Reports: Shortness of Breath Cardiovascular: Reports: No Symptoms Gastrointestinal: Reports: No Symptoms Genitourinary: Reports: No Symptoms Musculoskeletal: Reports: No Symptoms Skin: Reports: No Symptoms Neurological: Reports: No Symptoms Psychiatric: Reports: No Symptoms - Patient Data Vitals - Most Recent: Last Vital Signs Temp 36.6 C 09/09/17 15:31 Pulse 76 09/09/17 16:59 Resp 16 09/09/17 16:59 BP 93/70 09/09/17 16:59 Pulse Ox 83 L 09/09/17 18:20 Weight - Most Recent: 63.957 kg I&O - Last 24 Hours: Intake & Output 09/09/17 09/09/17 09/09/17 06:59 14:59 22:59 Intake Total 325 300 Output Total 150 150 Balance 175 300 -150 Lab Results Last 24 Hours: Laboratory Results - last 24 hr 09/08/17 09/09/17 09/09/17 Range/Units 20:33 06:32 08:15 WBC 11.21 H (3.98-10.04) K/mm3 RBC 4.44 (3.98-5.22) M/mm3 Hgb 12.7 (11.2-15.7) gm/L Hct 41.5 (34.1-44.9) % MCV 93.5 (79.4-94.8) fl MCH 28.6 (25.6-32.2) pg MCHC 30.6 L (32.2-35.5) g/dl RDW Std Deviation 65.8 H (36.4-46.3) fL Plt Count 214 (182-369) K/mm3 MPV 11.1 (9.4-12.3) fl Neut % (Auto) 95.3 H (34.0-71.1) % Lymph % (Auto) 1.8 L (19.3-51.7) % Kemper % (Auto) 2.7 L (4.7-12.5) % Eos % (Auto) 0 L (0.7-5.8) Baso % (Auto) 0.0 L (0.1-1.2) % Neut # (Auto) 10.69 H (1.56-6.13) K/mm3 Lymph # (Auto) 0.20 L (1.18-3.74) K/mm3 Kemper # (Auto) 0.30 (0.24-0.36) K/mm3 Eos # (Auto) 0.00 L (0.04-0.36) K/mm3 Baso # (Auto) 0.00 L (0.01-0.08) K/mm3 Manual Slide Review Abnormal smear Sodium (136-145) mEq/L Potassium (3.5-5.1) mEq/L Chloride (98-107) mEq/L Carbon Dioxide (21-32) mEq/L Anion Gap (5-15) BUN (7-18) mg/dL Creatinine (0.55-1.02) mg/dL Est Cr Clr Drug Dosing mL/min Estimated GFR (MDRD) (>60) mL/min BUN/Creatinine Ratio (14-18) Glucose (83-115) mg/dL POC Glucose 164 H 147 H (83-110) mg/dL Calcium (8.5-10.1) mg/dL Magnesium (1.8-2.4) mg/dl C-Reactive Protein (<1.0) mg/dL 09/09/17 09/09/17 09/09/17 Range/Units 08:15 11:18 17:15 WBC (3.98-10.04) K/mm3 RBC (3.98-5.22) M/mm3 Hgb (11.2-15.7) gm/L Hct (34.1-44.9) % MCV (79.4-94.8) fl MCH (25.6-32.2) pg MCHC (32.2-35.5) g/dl RDW Std Deviation (36.4-46.3) fL Plt Count (182-369) K/mm3 MPV (9.4-12.3) fl Neut % (Auto) (34.0-71.1) % Lymph % (Auto) (19.3-51.7) % Kemper % (Auto) (4.7-12.5) % Eos % (Auto) (0.7-5.8) Baso % (Auto) (0.1-1.2) % Neut # (Auto) (1.56-6.13) K/mm3 Lymph # (Auto) (1.18-3.74) K/mm3 Kemper # (Auto) (0.24-0.36) K/mm3 Eos # (Auto) (0.04-0.36) K/mm3 Baso # (Auto) (0.01-0.08) K/mm3 Manual Slide Review Sodium 141 (136-145) mEq/L Potassium 4.4 (3.5-5.1) mEq/L Chloride 100 (98-107) mEq/L Carbon Dioxide 34 H (21-32) mEq/L Anion Gap 11.4 (5-15) BUN 35 H (7-18) mg/dL Creatinine 0.9 (0.55-1.02) mg/dL Est Cr Clr Drug Dosing 46.36 mL/min Estimated GFR (MDRD) > 60 (>60) mL/min BUN/Creatinine Ratio 38.9 H (14-18) Glucose 136 H (83-115) mg/dL POC Glucose 199 H 158 H (83-110) mg/dL Calcium 9.1 (8.5-10.1) mg/dL Magnesium 2.2 (1.8-2.4) mg/dl C-Reactive Protein < 0.2 (<1.0) mg/dL Med Orders - Current: Current Medications Albuterol (Proventil Neb Soln) 2.5 mg NEB Q4HRRT PRN PRN Reason: Shortness of Breath Albuterol/Ipratropium (Duoneb 3.0-0.5 Mg/3 Ml) 3 ml NEB QIDRT [facility] Last Admin: 09/09/17 15:14 Dose: 3 ml Aspirin (Halfprin) 81 mg PO DAILY [facility] Last Admin: 09/09/17 08:17 Dose: 81 mg Dextrose/Water (Dextrose 50% In Water) 50 ml IVPUSH ASDIRECTED PRN PRN Reason: Hypoglycemia Enoxaparin Sodium (Lovenox) 40 mg SUBCUT DAILY [facility] Last Admin: 09/09/17 08:20 Dose: 40 mg Hyoscyamine (Hyomax-Sl) 0.125 mg SL Q4H PRN PRN Reason: Cramping Insulin Aspart (Novolog) 0 unit SUBCUT QIDACANDBED [facility] PRN Reason: Protocol Last Admin: 09/09/17 17:43 Dose: 1 unit Levofloxacin (Levaquin) 500 mg PO Q24H [facility] Metformin HCl (Glucophage) 500 mg PO BID [facility] Last Admin: 09/09/17 08:17 Dose: 500 mg Methimazole (Methimazole) 5 mg PO Q48H [facility] Last Admin: 09/09/17 10:40 Dose: 5 mg Methylprednisolone Sodium Succinate (Solu-Medrol) 80 mg IVPUSH Q8H [facility] Metoprolol Tartrate (Lopressor) 50 mg PO BID [facility] Last Admin: 09/09/17 08:24 Dose: 50 mg Mometasone Furoate/Formoterol Fumar (Dulera 200-5 Mcg) 2 puff IH BID [facility] Last Admin: 09/09/17 09:03 Dose: 2 puff Nicotine (Habitrol) 21 mg TRDERM DAILY [facility] Last Admin: 09/09/17 08:20 Dose: 21 mg Letrozole 2.5mg Tab 0 each PO DAILY [facility] Last Admin: 09/09/17 10:28 Dose: Not Given Rosuvastatin Calcium (Crestor) 5 mg PO Q48H [facility] Last Admin: 09/08/17 21:32 Dose: 5 mg Sodium Chloride (Saline Flush) 10 ml FLUSH ASDIRECTED PRN PRN Reason: Keep Vein Open Last Admin: 09/05/17 13:27 Dose: 10 ml Discontinued Medications Albuterol/Ipratropium (Duoneb 3.0-0.5 Mg/3 Ml) 3 ml NEB ONETIME ONE Stop: 09/05/17 13:18 Last Admin: 09/05/17 13:43 Dose: 3 ml Albuterol/Ipratropium (Duoneb 3.0-0.5 Mg/3 Ml) 3 ml NEB QID [facility] Last Admin: 09/06/17 21:27 Dose: 3 ml Furosemide (Lasix) 40 mg IVPUSH NOW ONE Stop: 09/05/17 13:53 Last Admin: 09/05/17 14:07 Dose: 40 mg Furosemide (Lasix) 40 mg IVPUSH NOW ONE Stop: 09/05/17 18:01 Last Admin: 09/05/17 17:33 Dose: 40 mg Magnesium Sulfate 2 gm/ Premix 50 mls @ 25 mls/hr IV ONETIME ONE Stop: 09/07/17 18:21 Last Admin: 09/07/17 17:34 Dose: 25 mls/hr Methimazole (Methimazole) 5 mg PO Q48H [facility] Last Admin: 09/06/17 10:27 Dose: Not Given Methimazole (Methimazole) 5 mg PO Q48H [facility] Last Admin: 09/06/17 10:19 Dose: Not Given Methylprednisolone Sodium Succinate (Solu-Medrol) 125 mg IVPUSH ONETIME ONE Stop: 09/05/17 13:21 Last Admin: 09/05/17 13:27 Dose: 125 mg Methylprednisolone Sodium Succinate (Solu-Medrol) 125 mg IVPUSH Q6H [facility] Last Admin: 09/07/17 10:26 Dose: 125 mg Methylprednisolone Sodium Succinate (Solu-Medrol) 125 mg IVPUSH Q8H [facility] Last Admin: 09/09/17 17:43 Dose: 125 mg - Exam Quality Assessment: DVT Prophylaxis General: Alert, Oriented, Cooperative, No Acute Distress HEENT: Pupils Equal, Pupils Reactive, EOMI Neck: Supple, Trachea Midline, No JVD Lungs: Normal Respiratory Effort, Decreased Breath Sounds Cardiovascular: Regular Rate, Regular Rhythm GI/Abdominal Exam: Normal Bowel Sounds, Soft, Non-Tender, No Organomegaly, No Distention (Female) Exam: Deferred Back Exam: Normal Inspection Extremities: Normal Inspection, Non-Tender Skin: Warm Neurological: No New Focal Deficit Psy/Mental Status: Alert - Problem List Review Problem List Initiated/Reviewed/Updated: Yes - My Orders Last 24 Hours: My Active Orders 09/09/17 18:40 methylPREDNISolone Sod Succ [Solu-MEDROL] 80 mg IVPUSH Q8H 09/09/17 18:45 Levofloxacin [Levaquin] 500 mg PO Q24H 09/10/17 05:00 BASIC METABOLIC PANEL,BMP [CHEM] DAILY CBC WITH AUTO DIFF [HEME] DAILY CRP [C-REACTIVE PROTEIN] [CHEM] DAILY MAGNESIUM [CHEM] DAILY - Plan Plan:: Impression: COPD exacerbation; end stage requires O2 @ 6 l/m Active tobacco abuse currently 1 pack per day Hypoxia--->improving; changed NRBM -->VM-->NC, currently tolerating with O2 sat >88%. 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 Keep O2 sat >88% Steroids IV Nebs IV Diurese as tolerated Home meds Daily Labs DVT/GI prophylaxis SW consult for SNF re: rehab Pulmonary rehab PT/OT consults LOS>96 hr due to slow response to treatment, difficulty weaning O2 to baseline.
[2017-09-09] MEDS ORDERED: Levofloxacin 500 MG Tab PO ONE (19:00)
[2017-09-10] MEDS: methylPREDNISolone Sodium Succinate 125 MG/2 ML SDV IVPUSH SCH ×3 (03:18→10:22)
[2017-09-10] MEDS: Albuterol/Ipratropium 3.0-0.5 MG/3 ML Neb Soln NEB SCH ×3 (06:06→15:45)
[2017-09-10] MEDS: Insulin Aspart 100 Units/ML 3 ML Pen SUBCUT SCH ×2 (06:36→12:51)
--- NOTE | 2017-09-10 07:37 | PCM.DCSUM1 ---
<Carolynn Cantu - Last Filed: 09/10/17 10:31> Discharge Summary - Hospital Course Free Text/Narrative:: 76-year-old female brought to the ED per [facility] [facility] when she summoned them due to increasing shortness of breath. 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 She reports she did get a little sleep last night. This morning however her breathing has become much more difficult and O2 sats are registering in the 50 percentile. She came to the ED on a nonrebreather mask at 15 L/m. This was discontinued upon arrival and she is likely hypercapnic. She'll be placed on a Venturi mask at 50% at this time. Initial O2 sats were anywhere between 47 and 53%. I did question her whether or not she wished to be intubated and she would rather not. We will therefore try conservative measures with injury which is not likely to be successful with O2 sats this level and then I will progress to BiPAP. She denies any fever chills or extra cough. She always has some sputum to bring up which is usually take and perhaps slightly yellow at times. No recent hemoptysis. - Discharge Data Discharge Date: 09/10/17 (admit date 09/05/17) Discharge Disposition: Home, Self-Care 01 Condition: Fair - Discharge Diagnosis/Problem(s) (1) Acute on chronic respiratory failure with hypoxia SNOMED Code(s): 846859639 ICD Code: J96.21 - ACUTE AND CHRONIC RESPIRATORY FAILURE WITH HYPOXIA Status: Resolved Priority: High Current Visit: Yes (2) COPD exacerbation SNOMED Code(s): 916170601389841 ICD Code: J44.1 - CHRONIC OBSTRUCTIVE PULMONARY DISEASE W (ACUTE) EXACERBATION Status: Acute Priority: High Current Visit: Yes (3) Congestive heart failure SNOMED Code(s): 54456260 ICD Code: I50.9 - HEART FAILURE, UNSPECIFIED Status: Acute Priority: High Current Visit: Yes QualifierTitle: Congestive heart failure type: unspecified congestive heart failure type Congestive heart failure chronicity: acute on chronic Qualified Code(s): I50.9 - Heart failure, unspecified (4) Current non-adherence to medical treatment SNOMED Code(s): 4029358 ICD Code: Z91.19 - PATIENT'S NONCOMPLIANCE W OTH MEDICAL TREATMENT AND REGIMEN Status: Chronic Priority: High Current Visit: Yes (5) Cigarette smoker two packs a day or less SNOMED Code(s): 98732563 ICD Code: F17.210 - NICOTINE DEPENDENCE, CIGARETTES, UNCOMPLICATED Status: Chronic Priority: High Current Visit: Yes (6) Hyperlipidemia SNOMED Code(s): 48694927 ICD Code: E78.5 - HYPERLIPIDEMIA, UNSPECIFIED Status: Chronic Priority: Low Current Visit: No QualifierTitle: Hyperlipidemia type: unspecified Qualified Code(s): E78.5 - Hyperlipidemia, unspecified (7) Hypertension SNOMED Code(s): 63993833 ICD Code: I10 - ESSENTIAL (PRIMARY) HYPERTENSION Status: Chronic Priority : Low Current Visit: No QualifierTitle: Hypertension type: essential hypertension Qualified Code( s): I10 - Essential (primary) hypertension (8) Hyperthyroidism SNOMED Code(s): 57492354 ICD Code: E05.90 - THYROTOXICOSIS, UNSP WITHOUT THYROTOXIC CRISIS OR STORM Status: Chronic Priority: Low Current Visit: No - Patient Summary/Data Operative Procedure(s) Performed: None Complications: None Consults: Consultations 09/07/17 09:00 Consult to Pulmonary Rehabilitation [CONS] Routine Consult to Functional Mental Disability Teacher [CONS] Routine 09/07/17 12:00 Consult to Occupational Therapy [OT Evaluation and Treatment] [CONS] Routine 09/07/17 13:00 Consult to Physical Therapy [PT Evaluation and Treatment] [CONS] Routine Labs Pending at D/C: None Recommended Follow-up Testing/Procedures: Establish care with a primary care provider in the area---this is essential!! Stop smoking Please follow up with your Primary Doctor regarding t-dap immunization Weight yourself daily and keep a record for your Doctor Nursing please call Home Health [phone] to report discharge. Home health care physical and occupational therapy. Planned Operative Procedure(s) after DC: None Hospital Course: Impression: COPD exacerbation; end stage requires O2 @ 6 l/m at home Active tobacco abuse currently 1 pack per day Hypoxia--->improving; changed NRBM -->VM-->NC, currently tolerating with O2 sat >88%. 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 Keep O2 sat >88% Steroids IV Nebs IV Diurese as tolerated Home meds Daily Labs DVT/GI prophylaxis SW consult for SNF re: rehab Pulmonary rehab PT/OT consults LOS>96 hr due to slow response to treatment, difficulty weaning O2 to baseline.- --- DC home today - Patient Instructions Diet: Heart Healthy Diet, Drink 8-10+ Glasses/Day Activity: As Tolerated Activity, Other: STOP smoking! Notify Provider of: Fever, Increased Pain, Nausea and/or Vomiting (worsening Shortness of breath, cough, chest pain) - Discharge Plan Prescriptions/Med Rec: Nicotine [Habitrol] 21 mg TRDERM DAILY #30 patch Prednisone [IJD: Prednisone] 10 mg PO DAILY #30 tab Home Medications: Home Meds Letrozole 2.5 mg PO DAILY 03/25/14 [History] Methimazole 5 mg PO ASDIRECTED 03/25/14 [History] Metoprolol Tartrate [Lopressor] 50 mg PO BID 03/25/14 [History] Rosuvastatin Calcium [Crestor] 5 mg PO ASDIRECTED 03/25/14 [History] metFORMIN [Glucophage] 500 mg PO BID 03/25/14 [History] Aspirin 81 mg PO DAILY 06/27/14 [History] Calcium Carb & Citrate/Vit D3 [Calcium + D3 ER Tablet] 1 tab PO BID 06/27/14 [ History] Lutein/Minerals/Vit A,C & E [Ocuvite] 1 tab PO DAILY 06/27/14 [History] Ergocalciferol (Vitamin D2) [Vitamin D] 400 unit PO BID 06/01/16 [History] Furosemide [Lasix] 20 mg PO BIDDIURETIC 06/01/16 [History] Hyoscyamine [Hyomax-SL] 0.125 mg SL Q4H PRN 06/01/16 [History] Ibuprofen 400 mg PO QID PRN 06/01/16 [History] Albuterol/Ipratropium [Take Home: Albuterol/Ipratropium 4 GM Inhaler] 3 packet INH ASDIRECTED PRN #3 inhaler 06/04/16 [Rx] Fluticasone/Salmeterol [Advair Diskus 250-50] 1 puff INH BID #3 inhaler [Rx] Nicotine [Habitrol] 21 mg TRDERM DAILY #30 patch 09/10/17 [Rx] Prednisone [IJD: Prednisone] 10 mg PO DAILY #30 tab 09/10/17 [Rx] Patient Handouts: Chronic Obstructive Pulmonary Disease, [id number], Heart Failure, [id number] Forms: ED Department Discharge Referrals: Hoda Marrufo PA-C [Physician Reed Polisher] - 09/16/17 1:00 pm PCP,Not In Area [Primary Care Provider] - - Discharge Summary/Plan Comment DC Time >30 min.: Yes (40 min) - General Info Date of Service: 09/10/17 Admission Dx/Problem (Free Text: Hypoxia, COPD exacerbation Patient has maintained saturations 75-86% overnight on 10L per RT and nursing. She is up and ambulatory, eating. She herself, feels "great" and wants to go home. Reviewed overnight oxygen levels with Dr. Mcconnell, will plan for DC later today. Functional Status: Reports: Pain Controlled, Tolerating Diet, Ambulating, Urinating - Review of Systems General: Reports: No Symptoms HEENT: Reports: No Symptoms Pulmonary: Reports: Shortness of Breath (chronic), Cough. Denies: Pleuritic Chest Pain Cardiovascular: Reports: Dyspnea on Exertion (chronic). Denies: Chest Pain Gastrointestinal: Reports: No Symptoms Genitourinary: Reports: No Symptoms Neurological: Reports: No Symptoms Psychiatric: Reports: No Symptoms - Patient Data Vitals - Most Recent: Last Vital Signs Temp 97.5 F 09/10/17 02:31 Pulse 63 09/10/17 02:31 Resp 18 09/10/17 02:31 BP 101/71 09/10/17 02:31 Pulse Ox 85 L 09/10/17 06:07 Weight - Most Recent: 65 kg I&O - Last 24 hours: Intake & Output 09/09/17 09/10/17 09/10/17 22:59 06:59 14:59 Intake Total 360 900 Output Total 150 Balance 210 900 Lab Results - Last 24 hrs: Laboratory Results - last 24 hr 09/09/17 09/09/17 09/09/17 Range/Units 08:15 08:15 11:18 WBC 11.21 H (3.98-10.04) K/mm3 RBC 4.44 (3.98-5.22) M/mm3 Hgb 12.7 (11.2-15.7) gm/L Hct 41.5 (34.1-44.9) % MCV 93.5 (79.4-94.8) fl MCH 28.6 (25.6-32.2) pg MCHC 30.6 L (32.2-35.5) g/dl RDW Std Deviation 65.8 H (36.4-46.3) fL Plt Count 214 (182-369) K/mm3 MPV 11.1 (9.4-12.3) fl Neut % (Auto) 95.3 H (34.0-71.1) % Lymph % (Auto) 1.8 L (19.3-51.7) % [place] % (Auto) 2.7 L (4.7-12.5) % Eos % (Auto) 0 L (0.7-5.8) Baso % (Auto) 0.0 L (0.1-1.2) % Neut # (Auto) 10.69 H (1.56-6.13) K/mm3 Lymph # (Auto) 0.20 L (1.18-3.74) K/mm3 [place] # (Auto) 0.30 (0.24-0.36) K/mm3 Eos # (Auto) 0.00 L (0.04-0.36) K/mm3 Baso # (Auto) 0.00 L (0.01-0.08) K/mm3 Manual Slide Review Abnormal smear Sodium 141 (136-145) mEq/L Potassium 4.4 (3.5-5.1) mEq/L Chloride 100 (98-107) mEq/L Carbon Dioxide 34 H (21-32) mEq/L Anion Gap 11.4 (5-15) BUN 35 H (7-18) mg/dL Creatinine 0.9 (0.55-1.02) mg/dL Est Cr Clr Drug Dosing 46.36 mL/min Estimated GFR (MDRD) > 60 (>60) mL/min BUN/Creatinine Ratio 38.9 H (14-18) Glucose 136 H (83-115) mg/dL POC Glucose 199 H (83-110) mg/dL Calcium 9.1 (8.5-10.1) mg/dL Magnesium 2.2 (1.8-2.4) mg/dl C-Reactive Protein < 0.2 (<1.0) mg/dL 09/09/17 09/09/17 09/10/17 Range/Units 17:15 23:13 05:59 WBC (3.98-10.04) K/mm3 RBC (3.98-5.22) M/mm3 Hgb (11.2-15.7) gm/L Hct (34.1-44.9) % MCV (79.4-94.8) fl MCH (25.6-32.2) pg MCHC (32.2-35.5) g/dl RDW Std Deviation (36.4-46.3) fL Plt Count (182-369) K/mm3 MPV (9.4-12.3) fl Neut % (Auto) (34.0-71.1) % Lymph % (Auto) (19.3-51.7) % [place] % (Auto) (4.7-12.5) % Eos % (Auto) (0.7-5.8) Baso % (Auto) (0.1-1.2) % Neut # (Auto) (1.56-6.13) K/mm3 Lymph # (Auto) (1.18-3.74) K/mm3 [place] # (Auto) (0.24-0.36) K/mm3 Eos # (Auto) (0.04-0.36) K/mm3 Baso # (Auto) (0.01-0.08) K/mm3 Manual Slide Review Sodium (136-145) mEq/L Potassium (3.5-5.1) mEq/L Chloride (98-107) mEq/L Carbon Dioxide (21-32) mEq/L Anion Gap (5-15) BUN (7-18) mg/dL Creatinine (0.55-1.02) mg/dL Est Cr Clr Drug Dosing mL/min Estimated GFR (MDRD) (>60) mL/min BUN/Creatinine Ratio (14-18) Glucose (83-115) mg/dL POC Glucose 158 H 263 H 108 (83-110) mg/dL Calcium (8.5-10.1) mg/dL Magnesium (1.8-2.4) mg/dl C-Reactive Protein (<1.0) mg/dL 09/10/17 Range/Units 06:32 WBC 8.18 (3.98-10.04) K/mm3 RBC 4.48 (3.98-5.22) M/mm3 Hgb 12.7 (11.2-15.7) gm/L Hct 41.7 (34.1-44.9) % MCV 93.1 (79.4-94.8) fl MCH 28.3 (25.6-32.2) pg MCHC 30.5 L (32.2-35.5) g/dl RDW Std Deviation 65.1 H (36.4-46.3) fL Plt Count 186 (182-369) K/mm3 MPV 11.1 (9.4-12.3) fl Neut % (Auto) 93.9 H (34.0-71.1) % Lymph % (Auto) 2.1 L (19.3-51.7) % [place] % (Auto) 3.8 L (4.7-12.5) % Eos % (Auto) 0 L (0.7-5.8) Baso % (Auto) 0.0 L (0.1-1.2) % Neut # (Auto) 7.68 H (1.56-6.13) K/mm3 Lymph # (Auto) 0.17 L (1.18-3.74) K/mm3 [place] # (Auto) 0.31 (0.24-0.36) K/mm3 Eos # (Auto) 0.00 L (0.04-0.36) K/mm3 Baso # (Auto) 0.00 L (0.01-0.08) K/mm3 Manual Slide Review Sodium (136-145) mEq/L Potassium (3.5-5.1) mEq/L Chloride (98-107) mEq/L Carbon Dioxide (21-32) mEq/L Anion Gap (5-15) BUN (7-18) mg/dL Creatinine (0.55-1.02) mg/dL Est Cr Clr Drug Dosing mL/min Estimated GFR (MDRD) (>60) mL/min BUN/Creatinine Ratio (14-18) Glucose (83-115) mg/dL POC Glucose (83-110) mg/dL Calcium (8.5-10.1) mg/dL Magnesium (1.8-2.4) mg/dl C-Reactive Protein (<1.0) mg/dL Med Orders - Current: Current Medications Albuterol (Proventil Neb Soln) 2.5 mg NEB Q4HRRT PRN PRN Reason: Shortness of Breath Albuterol/Ipratropium (Duoneb 3.0-0.5 Mg/3 Ml) 3 ml NEB QIDRT [facility] Last Admin: 09/10/17 06:06 Dose: 3 ml Aspirin (Halfprin) 81 mg PO DAILY [facility] Last Admin: 09/09/17 08:17 Dose: 81 mg Dextrose/Water (Dextrose 50% In Water) 50 ml IVPUSH ASDIRECTED PRN PRN Reason: Hypoglycemia Enoxaparin Sodium (Lovenox) 40 mg SUBCUT DAILY [facility] Last Admin: 09/09/17 08:20 Dose: 40 mg Hyoscyamine (Hyomax-Sl) 0.125 mg SL Q4H PRN PRN Reason: Cramping Insulin Aspart (Novolog) 0 unit SUBCUT QIDACANDBED [facility] PRN Reason: Protocol Last Admin: 09/10/17 06:36 Dose: Not Given Levofloxacin (Levaquin) 250 mg PO Q24H [facility] Metformin HCl (Glucophage) 500 mg PO BID [facility] Last Admin: 09/09/17 20:49 Dose: 500 mg Methimazole (Methimazole) 5 mg PO Q48H [facility] Last Admin: 09/09/17 10:40 Dose: 5 mg Methylprednisolone Sodium Succinate (Solu-Medrol) 80 mg IVPUSH Q8H [facility] Last Admin: 09/10/17 03:18 Dose: 80 mg Metoprolol Tartrate (Lopressor) 50 mg PO BID [facility] Last Admin: 09/09/17 20:48 Dose: 50 mg Mometasone Furoate/Formoterol Fumar (Dulera 200-5 Mcg) 2 puff IH BID [facility] Last Admin: 09/09/17 22:06 Dose: 2 puff Nicotine (Habitrol) 21 mg TRDERM DAILY [facility] Last Admin: 09/09/17 08:20 Dose: 21 mg Letrozole 2.5mg Tab 0 each PO DAILY [facility] Last Admin: 09/09/17 10:28 Dose: Not Given Rosuvastatin Calcium (Crestor) 5 mg PO Q48H [facility] Last Admin: 09/08/17 21:32 Dose: 5 mg Sodium Chloride (Saline Flush) 10 ml FLUSH ASDIRECTED PRN PRN Reason: Keep Vein Open Last Admin: 09/05/17 13:27 Dose: 10 ml Discontinued Medications Albuterol/Ipratropium (Duoneb 3.0-0.5 Mg/3 Ml) 3 ml NEB ONETIME ONE Stop: 09/05/17 13:18 Last Admin: 09/05/17 13:43 Dose: 3 ml Albuterol/Ipratropium (Duoneb 3.0-0.5 Mg/3 Ml) 3 ml NEB QID [facility] Last Admin: 09/06/17 21:27 Dose: 3 ml Furosemide (Lasix) 40 mg IVPUSH NOW ONE Stop: 09/05/17 13:53 Last Admin: 09/05/17 14:07 Dose: 40 mg Furosemide (Lasix) 40 mg IVPUSH NOW ONE Stop: 09/05/17 18:01 Last Admin: 09/05/17 17:33 Dose: 40 mg Magnesium Sulfate 2 gm/ Premix 50 mls @ 25 mls/hr IV ONETIME ONE Stop: 09/07/17 18:21 Last Admin: 09/07/17 17:34 Dose: 25 mls/hr Levofloxacin (Levaquin) 500 mg PO ONETIME ONE Stop: 09/09/17 19:01 Last Admin: 09/09/17 19:40 Dose: 500 mg Methimazole (Methimazole) 5 mg PO Q48H [facility] Last Admin: 09/06/17 10:27 Dose: Not Given Methimazole (Methimazole) 5 mg PO Q48H [facility] Last Admin: 09/06/17 10:19 Dose: Not Given Methylprednisolone Sodium Succinate (Solu-Medrol) 125 mg IVPUSH ONETIME ONE Stop: 09/05/17 13:21 Last Admin: 09/05/17 13:27 Dose: 125 mg Methylprednisolone Sodium Succinate (Solu-Medrol) 125 mg IVPUSH Q6H [facility] Last Admin: 09/07/17 10:26 Dose: 125 mg Methylprednisolone Sodium Succinate (Solu-Medrol) 125 mg IVPUSH Q8H [facility] Last Admin: 09/09/17 17:43 Dose: 125 mg - Exam Quality Assessment: Reports: Supplemental Oxygen, DVT Prophylaxis General: Reports: Alert, Oriented, Cooperative, No Acute Distress HEENT: Reports: Pupils Equal, EOMI, Mucous Membr. Moist/[place] Neck: Reports: Supple Lungs: Reports: Normal Respiratory Effort, Decreased Breath Sounds (thorughout) Cardiovascular: Reports: Regular Rate, Regular Rhythm GI/Abdominal Exam: Normal Bowel Sounds, Soft, Non-Tender (Female) Exam: Deferred Rectal (Female) Exam: Deferred Extremities: No Pedal Edema, Normal Capillary Refill Neurological: Reports: No New Focal Deficit Psy/Mental Status: Reports: Alert, Normal Affect, Normal Mood *Q Meaningful Use (DIS) - VTE *Q VTE Criteria *Q: - Stroke *Q Stroke Criteria *Q: - AMI *Q AMI Criteria *Q: <Rosalie Mcconnell - Last Filed: 09/10/17 16:06> Discharge Summary - Hospital Course Free Text/Narrative:: Levoquin 500 mg daily, 5 days. - Patient Summary/Data Consults: Consultations 09/07/17 09:00 Consult to Pulmonary Rehabilitation [CONS] Routine Consult to Functional Mental Disability Teacher [CONS] Routine 09/07/17 12:00 Consult to Occupational Therapy [OT Evaluation and Treatment] [CONS] Routine 09/07/17 13:00 Consult to Physical Therapy [PT Evaluation and Treatment] [CONS] Routine - Patient Data Vitals - Most Recent: Last Vital Signs Temp 36.6 C 09/10/17 11:58 Pulse 69 09/10/17 12:00 Resp 20 09/10/17 11:58 BP 98/52 L 09/10/17 12:00 Pulse Ox 82 L 09/10/17 15:46 I&O - Last 24 hours: Intake & Output 09/10/17 09/10/17 09/10/17 06:59 14:59 22:59 Intake Total 900 120 Balance 900 120 Lab Results - Last 24 hrs: Laboratory Results - last 24 hr 09/09/17 09/09/17 09/10/17 Range/Units 17:15 23:13 05:59 WBC (3.98-10.04) K/mm3 RBC (3.98-5.22) M/mm3 Hgb (11.2-15.7) gm/L Hct (34.1-44.9) % MCV (79.4-94.8) fl MCH (25.6-32.2) pg MCHC (32.2-35.5) g/dl RDW Std Deviation (36.4-46.3) fL Plt Count (182-369) K/mm3 MPV (9.4-12.3) fl Neut % (Auto) (34.0-71.1) % Lymph % (Auto) (19.3-51.7) % [place] % (Auto) (4.7-12.5) % Eos % (Auto) (0.7-5.8) Baso % (Auto) (0.1-1.2) % Neut # (Auto) (1.56-6.13) K/mm3 Lymph # (Auto) (1.18-3.74) K/mm3 [place] # (Auto) (0.24-0.36) K/mm3 Eos # (Auto) (0.04-0.36) K/mm3 Baso # (Auto) (0.01-0.08) K/mm3 Manual Slide Review Sodium (136-145) mEq/L Potassium (3.5-5.1) mEq/L Chloride (98-107) mEq/L Carbon Dioxide (21-32) mEq/L Anion Gap (5-15) BUN (7-18) mg/dL Creatinine (0.55-1.02) mg/dL Est Cr Clr Drug Dosing mL/min Estimated GFR (MDRD) (>60) mL/min BUN/Creatinine Ratio (14-18) Glucose (83-115) mg/dL POC Glucose 158 H 263 H 108 (83-110) mg/dL Calcium (8.5-10.1) mg/dL Magnesium (1.8-2.4) mg/dl C-Reactive Protein (<1.0) mg/dL 09/10/17 09/10/17 09/10/17 Range/Units 06:32 06:32 11:27 WBC 8.18 (3.98-10.04) K/mm3 RBC 4.48 (3.98-5.22) M/mm3 Hgb 12.7 (11.2-15.7) gm/L Hct 41.7 (34.1-44.9) % MCV 93.1 (79.4-94.8) fl MCH 28.3 (25.6-32.2) pg MCHC 30.5 L (32.2-35.5) g/dl RDW Std Deviation 65.1 H (36.4-46.3) fL Plt Count 186 (182-369) K/mm3 MPV 11.1 (9.4-12.3) fl Neut % (Auto) 93.9 H (34.0-71.1) % Lymph % (Auto) 2.1 L (19.3-51.7) % [place] % (Auto) 3.8 L (4.7-12.5) % Eos % (Auto) 0 L (0.7-5.8) Baso % (Auto) 0.0 L (0.1-1.2) % Neut # (Auto) 7.68 H (1.56-6.13) K/mm3 Lymph # (Auto) 0.17 L (1.18-3.74) K/mm3 [place] # (Auto) 0.31 (0.24-0.36) K/mm3 Eos # (Auto) 0.00 L (0.04-0.36) K/mm3 Baso # (Auto) 0.00 L (0.01-0.08) K/mm3 Manual Slide Review Abnormal smear Sodium 141 (136-145) mEq/L Potassium 4.4 (3.5-5.1) mEq/L Chloride 100 (98-107) mEq/L Carbon Dioxide 33 H (21-32) mEq/L Anion Gap 12.4 (5-15) BUN 39 H (7-18) mg/dL Creatinine 0.8 (0.55-1.02) mg/dL Est Cr Clr Drug Dosing 52.15 mL/min Estimated GFR (MDRD) > 60 (>60) mL/min BUN/Creatinine Ratio 48.8 H (14-18) Glucose 105 (83-115) mg/dL POC Glucose 163 H (83-110) mg/dL Calcium 8.9 (8.5-10.1) mg/dL Magnesium 2.0 (1.8-2.4) mg/dl C-Reactive Protein < 0.2 (<1.0) mg/dL Med Orders - Current: Current Medications Albuterol (Proventil Neb Soln) 2.5 mg NEB Q4HRRT PRN PRN Reason: Shortness of Breath Albuterol/Ipratropium (Duoneb 3.0-0.5 Mg/3 Ml) 3 ml NEB QIDRT [facility] Last Admin: 09/10/17 15:45 Dose: 3 ml Aspirin (Halfprin) 81 mg PO DAILY [facility] Last Admin: 09/10/17 08:49 Dose: 81 mg Dextrose/Water (Dextrose 50% In Water) 50 ml IVPUSH ASDIRECTED PRN PRN Reason: Hypoglycemia Enoxaparin Sodium (Lovenox) 40 mg SUBCUT DAILY [facility] Last Admin: 09/10/17 08:48 Dose: 40 mg Hyoscyamine (Hyomax-Sl) 0.125 mg SL Q4H PRN PRN Reason: Cramping Insulin Aspart (Novolog) 0 unit SUBCUT QIDACANDBED [facility] PRN Reason: Protocol Last Admin: 09/10/17 12:51 Dose: 1 unit Levofloxacin (Levaquin) 250 mg PO Q24H [facility] Metformin HCl (Glucophage) 500 mg PO BID [facility] Last Admin: 09/10/17 08:49 Dose: 500 mg Methimazole (Methimazole) 5 mg PO Q48H [facility] Last Admin: 09/09/17 10:40 Dose: 5 mg Methylprednisolone Sodium Succinate (Solu-Medrol) 80 mg IVPUSH Q8H [facility] Last Admin: 09/10/17 10:22 Dose: Not Given Metoprolol Tartrate (Lopressor) 50 mg PO BID [facility] Last Admin: 09/10/17 08:48 Dose: 50 mg Mometasone Furoate/Formoterol Fumar (Dulera 200-5 Mcg) 2 puff IH BID [facility] Last Admin: 09/10/17 09:51 Dose: 2 puff Nicotine (Habitrol) 21 mg TRDERM DAILY [facility] Last Admin: 09/10/17 08:51 Dose: 21 mg Letrozole 2.5mg Tab 0 each PO DAILY [facility] Last Admin: 09/10/17 08:52 Dose: Not Given Rosuvastatin Calcium (Crestor) 5 mg PO Q48H [facility] Last Admin: 09/08/17 21:32 Dose: 5 mg Sodium Chloride (Saline Flush) 10 ml FLUSH ASDIRECTED PRN PRN Reason: Keep Vein Open Last Admin: 09/05/17 13:27 Dose: 10 ml Discontinued Medications Albuterol/Ipratropium (Duoneb 3.0-0.5 Mg/3 Ml) 3 ml NEB ONETIME ONE Stop: 09/05/17 13:18 Last Admin: 09/05/17 13:43 Dose: 3 ml Albuterol/Ipratropium (Duoneb 3.0-0.5 Mg/3 Ml) 3 ml NEB QID [facility] Last Admin: 09/06/17 21:27 Dose: 3 ml Furosemide (Lasix) 40 mg IVPUSH NOW ONE Stop: 09/05/17 13:53 Last Admin: 09/05/17 14:07 Dose: 40 mg Furosemide (Lasix) 40 mg IVPUSH NOW ONE Stop: 09/05/17 18:01 Last Admin: 09/05/17 17:33 Dose: 40 mg Magnesium Sulfate 2 gm/ Premix 50 mls @ 25 mls/hr IV ONETIME ONE Stop: 09/07/17 18:21 Last Admin: 09/07/17 17:34 Dose: 25 mls/hr Levofloxacin (Levaquin) 500 mg PO ONETIME ONE Stop: 09/09/17 19:01 Last Admin: 09/09/17 19:40 Dose: 500 mg Methimazole (Methimazole) 5 mg PO Q48H [facility] Last Admin: 09/06/17 10:27 Dose: Not Given Methimazole (Methimazole) 5 mg PO Q48H [facility] Last Admin: 09/06/17 10:19 Dose: Not Given Methylprednisolone Sodium Succinate (Solu-Medrol) 125 mg IVPUSH ONETIME ONE Stop: 09/05/17 13:21 Last Admin: 09/05/17 13:27 Dose: 125 mg Methylprednisolone Sodium Succinate (Solu-Medrol) 125 mg IVPUSH Q6H [facility] Last Admin: 09/07/17 10:26 Dose: 125 mg Methylprednisolone Sodium Succinate (Solu-Medrol) 125 mg IVPUSH Q8H [facility] Last Admin: 09/09/17 17:43 Dose: 125 mg *Q Meaningful Use (DIS) - VTE *Q VTE Criteria *Q: - Stroke *Q Stroke Criteria *Q: - AMI *Q AMI Criteria *Q:
[2017-09-10] MEDS: Metoprolol Tartrate 100 MG Tab PO SCH (08:48)
[2017-09-10] MEDS: Enoxaparin 40 MG/0.4 ML Syringe SUBCUT SCH (08:48)
[2017-09-10] MEDS: metFORMIN 500 MG Tab PO SCH (08:49)
[2017-09-10] MEDS: Aspirin 81 MG Tab.EC PO SCH (08:49)
[2017-09-10] MEDS: Nicotine 21 MG/24 Hr Patch TRDERM SCH (08:51)
[2017-09-10] MEDS: Formoterol/Mometasone 200-5 MCG 8.8 GM Inhaler IH SCH (09:51)
[2017-09-10 17:28] VITALS: BP 116/55
[2017-09-10] MEDS ORDERED: Levofloxacin 250 MG Tab PO SCH (19:00)
== END 2017-09-10 16:05 | disposition home or self-care (01) | DRG 190 ==
LOC: JD.ED 12:47 → JD.ICU 15:06 → JD.MS 09-07 17:31
PROVIDERS: ADMIT Internal Medicine Cardiovascular Disease; ATTEND Internal Medicine Cardiovascular Disease
DX: J44.0 Chronic obstructive pulmonary disease with (acute) lower respiratory infection (principal); J18.9 Pneumonia, unspecified organism; J96.21 Acute and chronic respiratory failure with hypoxia; J44.1 Chronic obstructive pulmonary disease with (acute) exacerbation; F17.210 Nicotine dependence, cigarettes, uncomplicated; I25.10 Atherosclerotic heart disease of native coronary artery without angina pectoris; I11.0 Hypertensive heart disease with heart failure; I50.9 Heart failure, unspecified; Z85.3 Personal history of malignant neoplasm of breast; E78.5 Hyperlipidemia, unspecified; R09.02 Hypoxemia; R41.82 Altered mental status, unspecified; K58.9 Irritable bowel syndrome, unspecified; E03.9 Hypothyroidism, unspecified; E11.9 Type 2 diabetes mellitus without complications; E05.20 Thyrotoxicosis with toxic multinodular goiter without thyrotoxic crisis or storm; R53.1 Weakness; Z91.19 Patient's noncompliance with other medical treatment and regimen; G89.29 Other chronic pain; M54.9 Dorsalgia, unspecified; M19.90 Unspecified osteoarthritis, unspecified site; H35.30 Unspecified macular degeneration; Z88.8 Allergy status to other drugs, medicaments and biological substances; Z79.84 Long term (current) use of oral hypoglycemic drugs; Z79.82 Long term (current) use of aspirin; Z99.81 Dependence on supplemental oxygen; Z79.52 Long term (current) use of systemic steroids; Z79.899 Other long term (current) drug therapy
CPT/HCPCS: 36415; 36600 ×2; 71010; 80053; 82553; 82803 ×2; 83735; 83880; 84484; 85025; 85379; 85610; 86140; 87040 ×2; 87804 ×2; 93005; 94640; 96374; 96375; 99285; J1940; J2930; J7050; 71046; 71046-26; 80048; 80061; 81001; 82962; 86738; 87486; 87581; 87633; 87798; 87899; 93010; 93306; 94660; 94762; 97110-GO; 97110-GP; 97162-GP; 97166-GO; 97530-GO; 97530-GP; A9270-GY; J1650; J1815-GY; J3475

== ENCOUNTER 2017-09-10 18:18 | Emergency (ER) | payer MEDICARE, OTHER ==
--- NOTE | 2017-09-10 19:28 | EDM.PDOC ---
ED HPI GENERAL MEDICAL PROBLEM - General Chief Complaint: CPR in Progress Stated Complaint: [facility] Time Seen by Provider: 09/10/17 18:18 - History of Present Illness INITIAL COMMENTS - FREE TEXT/NARRATIVE: I met the ambulance and the ambulance bay. They called after responding to a patient that had fallen at home they were there in very brief time the patient was talking looked pretty pale they got her hooked up to the monitor just as she was developing an agonal rhythm and becoming unresponsive they started CPR immediately and from reviewing the records did everything appropriately ACLS standards the patient was discharged from this hospital earlier today and with reviewing her records it was found that she actually has a DNR in place. Upon arrival here the patient's pupils were fixed and dilated and shortly after arrival here to resuscitate efforts were terminated at 1820. Treatments CAREER AND GUIDANCE COUNSELOR: Reports: CPR - Related Data Allergies Allergy/AdvReac Type Severity Reaction Status Date / Time lisinopril Allergy Hives Verified 09/10/17 18:27 Home Meds: Home Meds Letrozole 2.5 mg PO DAILY 03/25/14 [History] Methimazole 5 mg PO ASDIRECTED 03/25/14 [History] Metoprolol Tartrate [Lopressor] 50 mg PO BID 03/25/14 [History] Rosuvastatin Calcium [Crestor] 5 mg PO ASDIRECTED 03/25/14 [History] metFORMIN [Glucophage] 500 mg PO BID 03/25/14 [History] Aspirin 81 mg PO DAILY 06/27/14 [History] Calcium Carb & Citrate/Vit D3 [Calcium + D3 ER Tablet] 1 tab PO BID 06/27/14 [ History] Lutein/Minerals/Vit A,C & E [Ocuvite] 1 tab PO DAILY 06/27/14 [History] Ergocalciferol (Vitamin D2) [Vitamin D] 400 unit PO BID 06/01/16 [History] Furosemide [Lasix] 20 mg PO BIDDIURETIC 06/01/16 [History] Hyoscyamine [Hyomax-SL] 0.125 mg SL Q4H PRN 06/01/16 [History] Ibuprofen 400 mg PO QID PRN 06/01/16 [History] Albuterol/Ipratropium [Take Home: Albuterol/Ipratropium 4 GM Inhaler] 3 packet INH ASDIRECTED PRN #3 inhaler 06/04/16 [Rx] Fluticasone/Salmeterol [Advair Diskus 250-50] 1 puff INH BID #3 inhaler [Rx] Nicotine [Habitrol] 21 mg TRDERM DAILY #30 patch 09/10/17 [Rx] Prednisone [IJD: Prednisone] 10 mg PO DAILY #30 tab 09/10/17 [Rx] Past Medical History HEENT History: Reports: Cataract, Macular Degeneration Cardiovascular History: Reports: CAD, Heart Failure, SOB on Exertion Respiratory History: Reports: COPD, SOB, Other (See Below) Other Respiratory History: hypoxemia Gastrointestinal History: Reports: Irritable Bowel Syndrome Genitourinary History: Reports: UTI, Recurrent, Other (See Below) Other Genitourinary History: vaginitis CANDLEMAKER History: Reports: Ectopic Musculoskeletal History: Reports: Arthritis, Back Pain, Chronic, Other (See Below) Other Musculoskeletal History: bulging disk in back Psychiatric History: Reports: Other (See Below) Other Psychiatric History: insomnia Endocrine/Metabolic History: Reports: Diabetes, Type II, Hypothyroidism, Other ( See Below) Other Endocrine/Metabolic History: thyrotoxicosis, multinodular goiter Hematologic History: Reports: Blood Transfusion(s) Oncologic (Cancer) History: Reports: Breast Dermatologic History: Reports: Other (See Below) Other Dermatologic History: rashes - Infectious Disease History Infectious Disease History: Reports: Chicken Pox, Measles, Mumps - Past Surgical History HEENT Surgical History: Reports: Cataract Surgery Female Surgical History: Reports: Breast Biopsy, Hysterectomy, Mastectomy Oncologic Surgical History: Reports: Biopsy of Breast, Mastectomy Social & Family History - Family History Family Medical History: Noncontributory Cardiac: Reports: Heart Failure Other Cardiac Family History: sister and brother Respiratory: Reports: PE, Other (See Below) Other Respiratory Family Hisory: father of thrombus Oncologic: Reports: Colon, Uterine - Tobacco Use Smoking Status *Q: Current Status Unknown Years of Tobacco use: 20 Packs/Tins Daily: 1 Used Tobacco, but Quit: No Second Hand Smoke Exposure: No - Caffeine Use Caffeine Use: Reports: Coffee Other Caffeine Use: 2-3 cups of coffee per day Caffeine Use Comment: 2-3 cups a day. - Alcohol Use Days Per Week of Alcohol Use: 0 - Recreational Drug Use Recreational Drug Use: No - Living Situation & Occupation Living situation: Reports: , Alone Occupation: Retired ED ROS GENERAL - Review of Systems Review Of Systems: Unable To Obtain ED EXAM, CPR - Physical Exam Exam: See Below General Appearance: Other (Ashen gonzalez in color) Eye Exam: Bilateral Eye: Abnormal Pupil (Pupils fixed and dilated) Respiratory Chest: Other (Patient has an ET tube in place breath movements appear to be symmetrical I did not have a chance to auscultate her lungs before resuscitative efforts were terminated) Cardiovascular: Other (Jean Marie device in place and functioning properly) Course - Vital Signs Last Recorded V/S: Last Vital Signs Temp 35.9 C 09/10/17 18:28 Pulse Resp BP Pulse Ox Departure - Departure Time of Disposition: 18:20 Disposition: 20 Preliminary Cause of *Q: Cardiac Arrest Clinical Impression: Cardiac arrest - Discharge Information Referrals: PCP,Unknown [Primary Care Provider] -
== END 2017-09-10 19:50 | disposition expired ==
LOC: JD.ED 18:18
DX: I46.9 Cardiac arrest, cause unspecified (principal); I50.9 Heart failure, unspecified; I25.10 Atherosclerotic heart disease of native coronary artery without angina pectoris; J44.9 Chronic obstructive pulmonary disease, unspecified; E11.9 Type 2 diabetes mellitus without complications; E03.9 Hypothyroidism, unspecified; Z79.84 Long term (current) use of oral hypoglycemic drugs; Z79.82 Long term (current) use of aspirin; Z79.899 Other long term (current) drug therapy; Z88.8 Allergy status to other drugs, medicaments and biological substances
CPT/HCPCS: 99284; 99285